=== PATIENT | male | born 1985 ===

== ENCOUNTER 2023-06-22 15:15 | Emergency (ER) | payer MEDICAID, SELFPAY ==
--- NOTE | ~2023-06-22 | XR_ITS ---
EXAMINATION: XR HAND, LEFT CLINICAL INFORMATION: 1st digit ?FB, pain, swelling COMPARISON: None available. TECHNIQUE: PA, lateral, and oblique views of the left hand. FINDINGS: There is soft tissue swelling of the proximal index finger. No air in the soft tissue. No radiopaque foreign body. No osseous abnormality. Bone and joint are normal. XR/XR hand LT min 3V IMPRESSION: There is soft tissue swelling of the proximal index finger. No radiopaque foreign body. No osseous abnormality.
[2023-06-22 15:28] VITALS: BP 145/93; PULSE 103; RESP 18; TEMP 37.3; O2SAT 98; BMI 34.7
--- NOTE | 2023-06-22 15:28 | ED.UPPEXIN ---
HPI - Extremity Injury (Upper) General Chief Complaint: Extremity Injury, Upper Stated Complaint: left finger swollen ?glass Time Seen by Provider: 06/22/23 16:26 Source: patient Mode of arrival: ambulatory Limitations: no limitations History of Present Illness HPI narrative: Patient is a 38-year-old male presenting to the emergency department with complaint of left index finger pain and swelling. He reports that he was handling glass last night and is unsure if he has a piece of glass stuck in his finger. He denies any discharge or drainage from the area. Denies any fevers. Reports pain with range of motion. Denies any numbness or tingling to finger. Unsure last tetanus vaccine. complaint: injury to: left and finger Onset (ago): hour(s) Other injuries: none Handedness: right Place: home Severity: moderate Relieving factors: rest Exacerbating factors: movement of extremity Context: other (handling glass) Associated symptoms: denies other symptoms Related Data Allergies Allergy/AdvReac Type Severity Reaction Status Date / Time Penicillins Allergy Facial Verified 06/22/23 15:28 Swelling Review of Systems Review of Systems: As per HPI Yes all other systems are reviewed and are negative Constitutional: Constitutional: Reports as per HPI [facility] Social History Social History Advance Directives: No Advance Directives Information Provided: No Physical Exam Vital Signs: Vital Signs: Last Vital Signs Temp 99.2 F 06/22/23 15:28 Pulse 103 H 06/22/23 15:28 Resp 18 06/22/23 15:28 BP 145/93 H 06/22/23 15:28 Pulse Ox 98 06/22/23 15:28 O2 Del Method Room Air 06/22/23 15:28 BMI result Body Mass Index 34.7 Vital signs have been reviewed and appear to be correct. Blood pressure elevated. Heart rate mildly elevated. Respiratory rate normal. Temperature normal. Oxygen saturation normal. Const: General: cooperative, healthy appearing and no acute distress Orientation/consciousness: oriented to person, oriented to place, oriented to time and patient oriented x3 Limitations: no limitations HEENT: Head: Yes normocephalic and Yes atraumatic Ears: external ears normal General nose exam: Normal external nose present Face and sinus: Yes face symmetric Mouth: oropharynx normal and moist mucous membranes Throat: Yes uvula midline Eyes: Pupils: Equal, round and reactive pupils present Neck: Neck: Yes normal visual inspection and Yes supple Resp: Effort & Inspection: normal respiratory effort and able to speak in complete sentences Auscultation: clear to auscultation bilaterally Cardio: Rate: regular rate Rhythm: regular rhythm Heart sounds: S1 normal heart sound present and S2 normal heart sound present GI: Palpation (GI): Soft to palpation and nontender Auscultation: normoactive bowel sounds : General: Yes no CVA tenderness Back/Spine/Pelvis: Back: no CVA tenderness Skin: General skin exam: elasticity normal and turgor normal Trauma: puncture (<1mm puncture wound to palmar aspect of left index finger in area of DIP) Neuro: General: oriented to person, oriented to place, oriented to time, patient oriented x3, moves all extremities, no focal motor deficits and CN's II-XI intact bilaterally Cranial nerves: Yes Equal, round and reactive pupils present Cognition (Neuro): normal cognition Extrem: General: Yes full ROM, Yes normal exam except as noted, Yes no pedal edema and Yes no calf tenderness Left upper extremity: hand Details: normal capillary refill, neuromotor exam normal, neurosensory exam normal, tendon exam normal, tenderness Location: of the 2nd digit Location: at the DIP joint and on the palmar aspect, normal ROM of fingers and swelling Location: of the 2nd digit Location: involving the entire digit (mild) Psych: Mental Status: mental status grossly normal Affect: normal affect Thought process: Normal thought process present Course Course Course Narrative: RME: 38yo M w/no sig PMHx c/o left index finger swelling, erythema, and pain since last night with suspected glass stuck in digit. Reports difficulty/inability to bend finger Left index finger with noted swelling and erythema. Small cut to the DIP. Decreased ROM X-rays ordered Full HPI, ROS and PE to be performed by primary ED provider. Medical Decision Making Medical Decision Making MDM Narrative: Patient is a 38-year-old male presenting to the emergency department with complaint of left index finger pain and swelling. On exam patient is awake, A+Ox3, VS WNL, afebrile, normal neurological exam without focal deficits, <1mm puncture wound noted to palmar surface of left index finger in area of the IP joint, mild swelling to entire left index finger, full range of motion, sensation intact, normal cap refill. Given reported symptoms and physical exam findings, initial differential includes foreign body, puncture wound, cellulitis. X-ray notable for no radio opaque foreign body. My interpretation is in agreement with the radiologist's interpretation. Will update tetanus at today's visit. 18:30 Patient noted to have eloped from exam room. Patient was not updated on results of x-ray prior to eloping. Patient did not receive Tdap prior to eloping. Differential Diagnosis Differential Diagnoses: The differential diagnosis associated with the presentation includes As per MDM Independent Interpretation I performed an independent interpretation of an: Plain X-Ray Interpretation: No radiopaque foreign body to index finger Radiology Impression Discussion of test interpretation with radiology: I have reviewed the radiologist's reading. External Record Review External record reviewed: Inpatient record, Office record and Outpatient record Prescription Management I considered prescription management with: Other (Tdap-pt eloped prior to administration) Discharge Plan Discharge Clinical Impression: Finger pain, left Patient Disposition: Elopement
== END 2023-06-22 21:44 | disposition left against medical advice (07) ==
PROVIDERS: Emergency Provider Emergency Medicine
DX: M79.645 Pain in left finger(s) (principal); M79.89 Other specified soft tissue disorders
CPT/HCPCS: 73130; 99283

== ENCOUNTER 2025-05-02 22:18 | Emergency (ER) | payer MEDICAID, SELFPAY ==
[2025-05-02 22:21] VITALS: BP 109/53; BP 110/75; PULSE 103; PULSE 114; RESP 20; O2SAT 89; O2SAT 96; BMI 25.5
[2025-05-02 22:28] VITALS: TEMP 36.6
--- NOTE | 2025-05-02 22:29 | PC.NURSE ---
1 bag of belongings placed in [place] shelf 2
[2025-05-03 00:17] VITALS: BP 93/51; PULSE 82; RESP 20; TEMP 36.4; O2SAT 97
--- NOTE | 2025-05-03 00:24 | ED_ITS ---
HPI - Overdose General Chief Complaint: Overdose Stated Complaint: over dose heroin Time Seen by Provider: 05/02/25 22:32 Source: patient Mode of arrival: EMS Limitations: no limitations History of Present Illness ED Provider: HPI Narrative: Patient's history of substance abuse will use cocaine was with friends had few drinks and use cocaine but became unresponsive likely had fentanyl when EMS reached came patient was unresponsive was given 10 mg of Narcan intranasally patient woke up and back to normal now patient denies use of opiates in the past no history of overdose in the past patient's started vomiting prior to arrival after Narcan Related Data Allergies Allergy/AdvReac Type Severity Reaction Status Date / Time Penicillins Allergy Facial Verified 05/02/25 22:23 Swelling Review of Systems 2 Review of Systems: Yes all other systems are reviewed and are negative [facility] Social History Social History Advance Directives: No Advance Directives Information Provided: No Physical Exam 2 Vital Signs: Vital Signs: Last Vital Signs Temp 97.6 F 05/03/25 00:17 Pulse 75 05/03/25 01:05 Resp 16 05/03/25 01:05 BP 105/73 05/03/25 01:05 Pulse Ox 97 05/03/25 01:05 O2 Del Method Room Air 05/03/25 01:05 BMI result Body Mass Index 25.5 Appearance: Alert. Oriented X3. No acute distress. Eyes: PERRLA, No Nystagmus ENT: Pharynx normal. Oral Mucosa moist Neck: Normal inspection. Neck supple. CVS: Normal heart rate and rhythm. Pulses normal. Respiratory: No respiratory distress. Equal air entry bilateral, no wheezing/rales/rhonchi Abdomen: Soft and nontender. Bowel sounds are present, no mass palpable, no CVA tenderness Skin: Skin warm and dry. Normal skin color. Normal skin turgor. Extremities: No lower extremity edema. No calf tenderness Neuro: Oriented X 3. No motor deficit. No sensory deficit.No cerebellar signs , cranial nerves II-XII intact Medications Administered Generic Name Dose Route Start Last Admin Trade Name Freq PRN Reason Stop Dose Admin Sodium Chloride 1,000 mls @ 999 mls/hr 05/03/25 00:50 05/03/25 00:59 Ns IV 05/03/25 01:50 999 mls/hr .Q1H1M ONE Administration Discontinued Medications Generic Name Dose Route Start Last Admin Trade Name Lenard PRN Reason Stop Dose Admin Ondansetron HCl 4 mg 05/02/25 23:04 05/02/25 23:07 Ondansetron Odt 4 Mg Tab.Stephan SORIA 05/02/25 23:05 4 mg ONCE ONE Administration Medical Decision Making Medical Decision Making [facility] Narrative: Patient clinically with opiate overdose responded to Narcan patient denies opiate use does not want to give the urine sample with stable vitals saturating 97% at room patient does not want any help go for detox Differential Diagnosis Differential Diagnoses: The differential diagnosis associated with the presentation includes Lab Data [facility] Lab Attestation statement: I reviewed the patient's lab results. 05/03/25 00:58 05/03/25 00:58 Labs: Lab Results 05/03/25 Range/Units 00:58 WBC 5.9 (4.8-10.8) X10*3/uL RBC 5.25 (4.60-5.80) X10*6/uL Hgb 14.3 (14.0-18.0) g/dl Hct 43.0 (42.0-52.0) % MCV 81.9 (80.0-98.0) fL MCH 27.2 (27.0-33.0) pg MCHC 33.3 (31.0-36.0) g/dl RDW 14.4 (11.0-16.0) % Plt Count 364 (160-400) X10*3/uL MPV 8.4 L (9.4-12.4) fL Immature Gran % (Auto) 0.9 H (0.0-0.4) % Neut % (Auto) 63.2 (45-73) % Lymph % (Auto) 15.5 L (20-40) % Duval % (Auto) 17.4 H (2-11) % Eos % (Auto) 2.7 (0-4) % Baso % (Auto) 0.3 (0-2) % Lymph # (Auto) 0.9 L (1.2-4.9) X10*3/uL Duval # (Auto) 1.0 (0.1-1.2) X10*3/uL Eos # (Auto) 0.2 (0.0-0.4) X10*3/uL Baso # (Auto) 0.0 (0.0-0.2) X10*3/uL Abs Immat Gran (auto) 0.05 H (0.00-0.03) X10*3/uL Absolute Neuts (auto) 3.7 (2.0-8.3) x10*3/uL Absolute Nucleated RBC 0.000 (0.0-0.012) X10*3/uL Nucleated RBC % (auto) 0.0 (0.0-0.2) /100WBC Sodium 144 (135-145) mmol/L Potassium 4.9 (3.3-5.1) mmol/L Chloride 107 (96-108) mmol/L Carbon Dioxide 27 (22-29) mmol/L Anion Gap 15 (12-20) BUN 15 (9-16) mg/dL Creatinine 1.10 (0.5-1.4) mg/dL Estim Creat Clear Calc 81.7 Estimated GFR > 60 Random Glucose 90 (60-115) mg/dL Calcium 9.0 (8.4-10.2) mg/dL Total Bilirubin 0.2 (0.0-1.0) mg/dL AST 34 (5-37) U/L ALT 41 H (0-40) U/L Alkaline Phosphatase 75 (39-117) U/L Troponin I High Sens 17.3 (<3.5-35.0) ng/L Total Protein 7.5 (6.5-8.0) g/dL Albumin 4.3 (3.5-5.0) g/dL Independent Interpretation I performed an independent interpretation of an: EKG Interpretation: Normal sinus rhythm with heart rate 81 beats per minute LVH no acute STT wave changes no acute ischemia Discharge Plan Discharge Clinical Impression: Opiate overdose Patient Disposition: Home, Self-Care Instructions: Opioid Use Disorder (ED) Additional Instructions: Opiate use disorder You were seen in our Emergency Department today for treatment of opiate use disorder. You may have been dosed with medication for opiate use disorder (MOUD) in the form of suboxone or methadone. You may experience feeling some withdrawal symptoms and this is normal. The? dose in the Emergency Department is a starting dose and meant to be titrated up once you follow up with a clinic. Please do not feel discouraged, it is a process. The nurse has reviewed with you where to follow up and what information to bring with you, to continue treatment. You also may have been given naloxone (narcan) to take home with you. This medication is used to potentially treat opiate overdose. If you decide you want to stop or cut down on how much you?re using, you can call or walk into our outpatient Addiction Treatment office: [facility] (M-F 9am-5p) [address] [place] [address], [address] [phone] You may have been provided with safer injection?items, please take time to take care of YOU and your health. Use new supplies whenever possible to lessen the chances of infections and other illnesses.? ?If you need more supplies, please go [facility],? [address] [place] [address] OR you can call or text to coordinate delivery of safer supplies. You were also provided a list of several treatment providers in the area.? If you experience any worsening symptoms you cannot control please return to the ED or call 911. Please follow up at your next appointment. Things to look out for are fevers, chest pain, shortness of breath, severe pain, dizziness, fainting or any other concerns. Print Language: Japanese
--- NOTE | 2025-05-03 00:50 | ECG_ITS ---
Test Reason : OVERDOSE Blood Pressure : */* mmHG Vent. Rate : 81 BPM Atrial Rate : 81 BPM P-R Int : 148 ms QRS Dur : 130 ms QT Int : 424 ms P-R-T Axes : 71 54 236 degrees QTcB Int : 492 ms Normal sinus rhythm Left ventricular hypertrophy with QRS widening and repolarization abnormality ( Sokolow-Cabrera , Tahir product , Romhilt-Yarbrough ) Abnormal ECG No previous ECGs available Referred By: Gordo Goodrich Electronically Signed By: ANI MONTAÑO
[2025-05-03 00:53] VITALS: BP 92/59; PULSE 80; RESP 16; O2SAT 96
[2025-05-03 01:02] LABS: Hematocrit 43.0 % (42.0-52.0); Hemoglobin 14.3 g/dl (14.0-18.0); Imm Gran Abs Auto 0.05 X10*3/uL (0.00-0.03); Imm Gran Pct Auto 0.9 % (0.0-0.4); Lymphocytes Absolute Auto 0.9 X10*3/uL (1.2-4.9); MANUAL DIFF FLAG NO; Mean Corpuscular HGB Conc 33.3 g/dl (31.0-36.0); Mean Corpuscular Hemoglobin 27.2 pg (27.0-33.0); Mean Corpuscular Volume 81.9 fL (80.0-98.0); NRBC Abs Auto 0.000 X10*3/uL (0.0-0.012); NRBC Pct Auto 0.0 /100WBC (0.0-0.2); Platelet Count 364 X10*3/uL (160-400); Red Blood Count 5.25 X10*6/uL (4.60-5.80); White Blood Count 5.9 X10*3/uL (4.8-10.8)
[2025-05-03 01:05] VITALS: BP 105/73; PULSE 75; RESP 16; O2SAT 97
[2025-05-03 01:16] LABS: Alanine Aminotransferase 41 U/L (0-40); Albumin Level 4.3 g/dL (3.5-5.0); Alkaline Phosphatase 75 U/L (39-117); Anion Gap 15 (12-20); Aspartate Amino Transferase 34 U/L (5-37); Blood Urea Nitrogen 15 mg/dL (9-16); Calcium 9.0 mg/dL (8.4-10.2); Carbon Dioxide 27 mmol/L (22-29); Chloride 107 mmol/L (96-108); Creatinine Clr Calc Pharmacy 81.7; Estimated Glomerular Filt Rate > 60; Potassium 4.9 mmol/L (3.3-5.1); Sodium 144 mmol/L (135-145); Total Protein 7.5 g/dL (6.5-8.0)
[2025-05-03 01:21] LABS: Troponin-I High Sensitivity 17.3 ng/L (<3.5-35.0)
[2025-05-03 02:06] VITALS: BP 102/41; PULSE 81; RESP 14; O2SAT 93
[2025-05-03 02:22] VITALS: BP 106/65; PULSE 81; RESP 20; O2SAT 97
[2025-05-03 05:04] LABS: Cannabinoid Screen Urine Not Detected (Not Detect)
[2025-05-03 05:34] VITALS: BP 123/68; PULSE 72; RESP 14; TEMP 36.6; O2SAT 100
--- NOTE | 2025-05-03 05:53 | PC.NURSE ---
states he feels ready to leave. alert and oriented. ambulates steadily. calm, polite. given shirt from collection bin and additional resources/numbers for detox/shelters.
== END 2025-05-03 06:12 | disposition home or self-care (01) ==
PROVIDERS: Emergency Provider Internal Medicine
DX: T40.1X1A Poisoning by heroin, accidental (unintentional), initial encounter (principal); R40.4 Transient alteration of awareness; R11.2 Nausea with vomiting, unspecified; F14.10 Cocaine abuse, uncomplicated; R94.31 Abnormal electrocardiogram [ECG] [EKG]; Z51.81 Encounter for therapeutic drug level monitoring; Z79.899 Other long term (current) drug therapy
CPT/HCPCS: 36415; 80053; 80307; 84484; 85025; 93005; 96360; 96361; 99284

== ENCOUNTER → 2025-05-03 00:50 | Outpatient (BNV) | payer MEDICAID, SELFPAY | PROVIDERS: Emergency Provider Internal Medicine; Visit Provider Internal Medicine | DX: I51.7 Cardiomegaly (principal) | CPT/HCPCS: 93010 ==

== ENCOUNTER 2025-06-03 21:12 | Emergency (ER) | payer MEDICAID, SELFPAY ==
[2025-06-03 21:32] VITALS: BP 117/76; BP 118/72; PULSE 112; PULSE 89; RESP 20; TEMP 36.5; O2SAT 95; O2SAT 99; BMI 29.0
--- NOTE | 2025-06-03 21:32 | ED.OVERDOSE ---
HPI - Overdose General Stated Complaint: OD/8 mg narcan given Time Seen by Provider: 06/03/25 21:28 Source: patient Mode of arrival: ambulatory Limitations: no limitations History of Present Illness ED Provider: Dr. Ernestina Colón HPI Narrative: Patient comes to the emergency room complaining of an overdose. According to the patient, he was using cocaine but seems to be laced with something. Patient denies suicide attempt or ideation, no HI, denies anxiety or depression. Patient states that he feels well. Patient is requesting to be discharged as soon as possible because he would lose his housing accommodation for tonight. Patient denies any injuries. Related Data Allergies Allergy/AdvReac Type Severity Reaction Status Date / Time Penicillins Allergy Facial Verified 06/03/25 21:34 Swelling Review of Systems Review of Systems: Constitutional : No Weight loss, No Fever, No Chills, No Night Sweats, No Fatigue, No Malaise ENT/Mouth : No Hearing loss, No Ear Pain, No Nasal Congestion, No Sinus Pain, No Hoarseness, No sore throat, No Rhinorrhea, No Swallowing Difficulty Eyes: No Eye Pain, No Swelling, No Redness, No Foreign Body, No Discharge, No Vision Changes Cardiovascular : No Chest Pain, No SOB, No Dyspnea on Exertion, No Orthopnea, No Edema, No Palpitations Respiratory : No Cough, No Sputum, No Wheezing, No Smoke Exposure, No Dyspnea Gastrointestinal : No Nausea, No Vomiting, No Diarrhea, No Constipation, No abdominal Pain, No Hematochezia, No Melena Genitourinary : no irregular bleeding, No Dysuria, No Urinary Frequency, No Hematuria, No Urinary Incontinence, No Urgency, No Flank Pain, No Urinary Flow Changes, No Hesitancy Musculoskeletal : No joint pain, No Myalgias, No Joint Swelling Skin : No Skin Lesions, No rash Neuro : No Weakness, No Numbness, No Paresthesias, No Loss of Consciousness, No Dizziness, No Headache Psych : No Anxiety/Panic, No Depression, No SI/HI/AH/VH, admits to polysubstance abuse an accidental overdose Heme/Lymph: No Bruising, No Bleeding,No Lymphadenopathy Endocrine : No Polyuria, No Polydipsia, No Temperature Intolerance PMF Past Medical History Medical History (Updated 06/03/25 @ 21:34 by Ernestina Colón MD) Overdose Polysubstance abuse Physical Exam Exam: Exam: Appearance: Alert. Oriented X3. No acute distress. Eyes: Pupils equal, round and reactive to light. ENT: Pharynx normal. Neck: Normal inspection. Neck supple. No lymph nodes noted. No crepitus CVS: Normal heart rate and rhythm. Pulses normal. Normal S1 and S2 Respiratory: No respiratory distress. Breath sounds normal. No Wheezing. No rales Abdomen: Soft and nontender. No rigidity. No distention. Skin: Skin warm and dry. Normal skin color. Normal skin turgor. Extremities: No lower extremity edema. No Lacerations. No Rash Neuro: Oriented X 3. No motor deficit. No sensory deficit. Moving all extremities. No slurred speech. CN 2 through 12 grossly intact Psych: calm, cooperative, normal affect Medical Decision Making Medical Decision Making MDM Narrative: Patient is awake, alert and oriented x3, coherent. Patient is on the oxygen monitor oxygen saturation 97% on room air. Patient states that he needs to be discharged as soon as possible or he will lose his housing arrangement for [facility]. Patient received 8 mg of Narcan. I discussed with the patient that it is possible that the Narcan affect may were done and he might become unresponsive and stopped breathing. Patient states that he knows that he is doing and is requesting to be discharged, declined any further assistance. Patient was given home Narcan declined teodora elena Differential Diagnosis Differential Diagnoses: The differential diagnosis associated with the presentation includes (Polysubstance abuse, accidental overdose) Discharge Plan Discharge Clinical Impression: Overdose Patient Disposition: Home, Self-Care Instructions: Adult Overdose (ED) Additional Instructions: Overdose You were seen in our Emergency Department for an overdose today. You received narcan in order to reverse the effects of overdose. Narcan only lasts about 45 min to 1 hour in the system. You may have been given narcan to take home with you today, please keep it near you if you are going to use again, so others can use it if needed.? The number one risk for fatal overdose is using alone? [facility] is a / hotline where you can be on the phone with someone while you use, and they can call for help if they suspect an overdose: [phone] Things to look out for when you leave include severe vomiting or diarrhea, headaches, muscle cramps, fever, coughing, chest pain, or if you feel so short of breath you cannot walk to the bathroom. Please seek care and return any time for worsening symptoms.? You may have been provided with safer injection?items, please take time to take care of YOU and your health. Use new supplies whenever possible to lessen the chances of infections and other illnesses.? If you need more supplies, please go [facility],? [address] [place] [address] OR you can call or text to coordinate delivery of safer supplies. If you decide you want to stop or cut down on how much you?re using, please call the numbers on the list provided to you or you can come to our outpatient Addiction Treatment office [facility] (M-F 9am-5p) [address] [place] [address], [facility] [address] [place], [place]. [phone] Print Language: Micronesian
[2025-06-03] MEDS: Naloxone HCl Nasal TAKE HOME 4 MG SPRAY 8 MG NOSTRILALT (21:36)
== END 2025-06-03 21:40 | disposition home or self-care (01) ==
LOC: HO.ED 21:37
PROVIDERS: Emergency Provider Emergency Medicine
DX: T65.91XA Toxic effect of unspecified substance, accidental (unintentional), initial encounter (principal); Y92.9 Unspecified place or not applicable
CPT/HCPCS: 99281; 99283

== ENCOUNTER 2025-10-18 09:23 | Inpatient (IN) | payer MEDICAID, SELFPAY ==
--- OUTSIDE RECORDS SUMMARY | 2024-04-30 10:00 | XMS_ITS ---
Author Organization [facility] Address [address] [place] [address] Care Team Providers Care Orthopedic Coder Name Role Phone Kim Harrison Primary Care Provider REASON FOR VISIT Phone: f/u Medications Medication SIG (Take, Route, Frequency, Duration) Notes Start Date End Date Status OLANZAPINE 5 mg 1 tab(s) orally once a day Active ACETAMINOPHEN 325 mg 2 tab(s) orally every 6 hours as needed Active IBUPROFEN 600 mg 1 tab(s) orally tid PRN Rt arm pain Active HYDROXYZINE hydrochloride 25 mg 1-2 tab(s) orally BID PRN Active CALCITRATE WITH D 315 mg-6.25 mcg 1 tab(s) orally daily for 90 days Vit D defic Active MULTIVITAMIN Multiple Vitamins 1 cap(s) orally once a day for 28 day(s) 08/07/2021 Unknown METFORMIN 500 mg 1 tab(s) orally 2 times a day Active FERROUS SULFATE 324 mg 1 tab(s) orally once a day pls deliver to address 04/05/2023 Active MELATONIN 5 mg 1 -2tab(s) orally once a day (at bedtime) as needed Active THIAMINE 100 mg 1 tab(s) orally once a day Active FOLIC ACID 1 mg 1 tab(s) orally once a day for 30 day(s) AUD Unknown NICODERM C-Q CLEAR 21 mg/24 hr 1 PATCH transdermally once a day Not-Taking BUPROPION SR 100 mg 1 tab(s) orally 2 times a day Not-Taking DIPHENHYDRAMINE 25 mg 1 cap(s) orally qhs Unknown NALTREXONE 50 mg 1 tab(s) orally once a day PRN Not-Taking ESCITALOPRAM 20 mg 1 tab(s) orally once a day for 30 days Active TRAZODONE 150 mg 1 tab(s) orally qhs PRN for 15 days No further RFs w/o 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 ALUMINUM HYDROXIDE/MAGNESIUM HYDROXIDE/SIMETHICONE 200 mg-200 mg-20 mg/5 mL 30 mL orally 4 times a day (after meals and at bedtime) as needed Not-Taking Encounters Encounter Location Date Provider Diagnosis [facility] [address] [place] [address] [facility] [id number] 04/30/2024 Daleradha Harrison Persons encountering health services in other specified circumstances Z76.89 and Person consulting for explanation of examination or test findings Z71.2 Assessments Encounter Date Diagnosis (ICD Code) Assessment Notes Treatment Notes Treatment Clinical Notes Section Notes 04/30/2024 Persons encountering health services in other specified circumstances (ICD-10 - Z76.89) Reviewed results of recent diagnostic testing with client. Future plan of action discussed with from results of diagnostic testing. 04/30/2024 Person consulting for explanation of examination or test findings (ICD-10 - Z71.2) 04/30/2024 Other Time spent in visit: minutes Plan Of Treatment Treatment Notes Assessment Notes Persons encountering health services in other specified circumstances Reviewed results of recent diagnostic testing with client. Future plan of action discussed with from results of diagnostic testing. Other Time spent in visit: minutes Next Appt Details Provider Name:Kim torrez, 11/01/2025 11:30:00 AM, [address] [place] [address], [phone], Progress Notes * Todd VAZQUEZDOB: [birth year] (40 yo M)Acc No.[id number]:04/30/2024 Progress Notes Patient: Ratna LUCIANOGladis Maxwell Provider: DAVID Pina :1985 A ge:39 Y S ex:Male Date:04/30/2024 Address:[address] [place] [address]( Verify address), [address] [address] (verify address), [place] [phone] Subjective: * Chief Complaints: * 1 . Phone: f/u. * HPI: G eneral: The patient has consented to a telephone encounter to reduce the risk of jenae COVID-19 in an office visit at this time. Limitations of this method of delivery of health services were discussed . The patient was made aware that privacy and confidentiality measures are in place to protect privacy. Location of provider: [facility] Location of patient: domicile Advocate present: none. 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 [facility] -substance use: tries to clean, uses once a month -MJ - once in a while. Gets from [employer] -[place] - 3 - 4 beers/day 3x a week -Cigarettes - 7 cigarettes day; started since 13 y/o; not ready to stop yet. * Medical History: * Medications: T aking CALCITRATE WITH D 315 mg-6.25 mcg tablet 1 tab(s) orally daily , Notes to Pharmacist: Vit D defic, Taking ACETAMINOPHEN 325 mg tablet 2 tab(s) orally every 6 hours as needed , Taking OLANZAPINE 5 mg tablet 1 tab(s) orally once a day , Taking HYDROXYZINE hydrochloride 25 mg tablet 1-2 tab(s) orally BID PRN , Taking IBUPROFEN 600 mg tablet 1 tab(s) orally tid PRN , Notes to Pharmacist: Rt arm pain, Taking TRAZODONE 150 mg tablet 1 tab(s) orally qhs PRN , Notes to Pharmacist: No further RFs w/o appt with WHITEPRINTING MACHINE OPERATOR, Taking ESCITALOPRAM 20 mg tablet 1 tab(s) orally once a day , Taking FERROUS SULFATE 324 mg delayed release tablet 1 tab(s) orally once a day , Notes to Pharmacist: pls deliver to address, Taking METFORMIN 500 mg tablet 1 tab(s) orally 2 times a day , Taking THIAMINE 100 mg tablet 1 tab(s) orally once a day , Taking MELATONIN 5 mg tablet 1 -2tab(s) orally once a day (at bedtime) as needed , Not-Taking/PRN ALUMINUM HYDROXIDE/MAGNESIUM HYDROXIDE/SIMETHICONE 200 mg-200 mg- 20 mg/5 mL suspension 30 mL orally 4 times a day (after meals and at bedtime) as needed , Not-Taking/PRN NICODERM C-Q CLEAR 21 mg/24 hr film, extended release 1 PATCH transdermally once a day , Not-Taking/PRN BUPROPION SR 100 mg tablet 1 tab(s) orally 2 times a day , Not-Taking/PRN NALTREXONE 50 mg tablet 1 tab(s) orally once a day PRN , Unknown DIPHENHYDRAMINE 25 mg capsule 1 cap(s) orally qhs , Unknown FOLIC ACID 1 mg tablet 1 tab(s) orally once a day , Notes to Pharmacist: AUD, Unknown MULTIVITAMIN Multiple Vitamins capsule 1 cap(s) orally once a day Objective: * Vitals: * Examination: G eneral Examination: U nable to perform PE due to constraints of telephone encounter/observational only. Engaged in OV and answers questions appropriately. No noted respiratory distress. No concerning verbal communication indicating BH distress. Assessment: * Assessment: 1. P erson consulting for explanation of examination or test findings - Z71.2 (Primary) ? 2 . P ersons encountering health services in other specified circumstances - Z76.89? Plan: * Treatment: 2. O thers Notes:Time spent in visit: minutes * Images: Billing Information: * Visit Code: T1015 CLINIC VST/ENCOUNTER ALL-INCLUSIVE. [address]120 HPI: 1PF;1ROS;PE: 2-4BA/SYS;MDM:Low; Prescription/OTC;most infections or >50%/15min spent counseling. 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 [facility] -substance use: tries to clean, uses once a month -MJ - once in a while. Gets from [employer] -[place] - 3 - 4 beers/day 3x a week -Cigarettes - 7 cigarettes day; started since 13 y/o; not ready to stop yet Examination Category Sub-Category Detail Notes Category Not es General Examination Unable t o perform PE due to constraints of telephone encounter/observational only. Engaged in OV and answers questions appropriately. No noted respiratory distress. No concerning verbal communication indicating BH distress.
--- OUTSIDE RECORDS SUMMARY | 2025-07-03 16:00 | XMS_ITS ---
Author Organization [facility] Address [address] [place] [address] Care Team Providers Care Garden Worker Name Role Phone Kim Harrison Primary Care Provider Migration, Provider Unavailable Unavailable Allergies Allergen (clinical drug ingredient) Drug/Non Drug Allergy documented on EMR Reaction Allergy Type Onset Date Status Penicillin mother told him he was allergoic to it. Drug Allergy Active REAS[facility] VISIT [facility] Conversion Encounter Medications Medication SIG (Take, Route, Frequency, Duration) Notes Start Date End Date Status Thiamine HCl 100 MG 1 tab(s) orally once a day Active metFORMIN HCl 500 MG 1 tab(s) orally 2 times a day Active Melatonin 5 MG 1 -2tab(s) orally once a day (at bedtime) as needed Active Ferrous Sulfate 324 MG 1 TAB(S) ORALLY ONCE A DAY pls deliver to address *Please review and pick correct strength-formula tion from [employer] options. If intended option is not shown, discontinue and re-order from Quick Search* 04/05/2023 Active Multi Vitamin MULTIPLE VITAMINS 1 CAP(S) ORALLY ONCE A DAY for 28 DAY(S) *Please review and pick correct strength-formula tion from [employer] options. If intended option is not shown, discontinue and re-order from Quick Search* 08/07/2021 Unknown BUPROPION SR 100 MG 1 TAB(S) ORALLY 2 TIMES A DAY *Please review for potential replacement for e-prescription and drug interaction check* Not-Taking Nicoderm CQ 21 MG/24HR 1 PATCH transdermally once a day Not-Taking diphenhydrAMINE HCl 25 MG 1 cap(s) orally qhs Unknown Naltrexone HCl 50 MG 1 tab(s) orally once a day PRN Not-Taking Folic Acid 1 MG 1 tab(s) orally once a day for 30 day(s) AUD Unknown traZODone HCl 150 MG 1 tab(s) orally qhs PRN for 15 days No further RFs w/o appt with SOFTWARE TECHNICIAN Active Ibuprofen 600 MG 1 tab(s) orally tid PRN Rt arm pain Active ALUMINUM HYDROXIDE/MAGNESIUM HYDROXIDE/SIMETHICONE 200 MG-200 MG-20 MG/5 ML 30 ML ORALLY 4 TIMES A DAY (AFTER MEALS AND AT BEDTIME) NEEDED *Please review for potential replacement for e-prescription and drug interaction check* Not-Taking Escitalopram Oxalate 20 MG 1 tab(s) orally once a day for 30 days Active hydrOXYzine HCl 25 MG 1-2 tab(s) orally BID PRN Active Acetaminophen 325 MG 2 tab(s) orally every 6 hours as needed Active Calcitrate Plus D 315 MG-6.25 MCG 1 TAB(S) ORALLY DAILY for 90 DAYS Vit D defic *Please review and pick correct strength-formula tion from [facility] options. If intended option is not shown, discontinue and re-order from Quick Search* Active OLANZapine 5 MG 1 tab(s) orally once a day Active Encounters Encounter Location Date Provider Diagnosis [address] [address] 07/03/2025 Provider Migration Plan Of Treatment Next Appt Details Provider Name:Kim Lipscomb lore, 11/01/2025 11:30:00 AM, [address] [place] [address], [phone], Progress Notes * Todd VAZQUEZDOB: [birth year] (40 yo M)Acc No.[id number]:07/03/2025 Patient: Ratna Todd GRUBBS Provider: :1985 A ge:40 Y S ex:Male Date:07/03/2025 Address:[address] [place] [address]( Verify address), [address] (verify address), [id number] Pcp:Kim Harrison Subjective: * Chief Complaints: * 1 . Multum To Medispan Conversion Encounter. * Medical History: * Medications: T aking Calcitrate Plus D 315 MG-6.25 MCG TABLET 1 TAB(S) ORALLY DAILY , Notes to Pharmacist: Vit D defic *Please review and pick correct strength-formulation from [employer] options. If intended option is not shown, discontinue and re-order from Quick Search*, Taking Acetaminophen 325 MG Tablet 2 tab(s) orally every 6 hours as needed , Taking OLANZapine 5 MG Tablet 1 tab(s) orally once a day , Taking hydrOXYzine HCl 25 MG Tablet 1-2 tab(s) orally BID PRN , Taking Ibuprofen 600 MG Tablet 1 tab(s) orally tid PRN , Notes to Pharmacist: Rt arm pain, Taking traZODone HCl 150 MG Tablet 1 tab(s) orally qhs PRN , Notes to Pharmacist: No further RFs w/o appt with SOFTWARE TECHNICIAN, Taking Escitalopram Oxalate 20 MG Tablet 1 tab(s) orally once a day , Taking Ferrous Sulfate 324 MG DELAYED RELEASE TABLET 1 TAB(S) ORALLY ONCE A DAY , Notes to Pharmacist: pls deliver to address *Please review and pick correct strength-formulation from [employer] options. If intended option is not shown, discontinue and re-order from Quick Search*, Taking metFORMIN HCl 500 MG Tablet 1 tab(s) orally 2 times a day , Taking Thiamine HCl 100 MG Tablet 1 tab(s) orally once a day , Taking Melatonin 5 MG Tablet 1 -2tab(s) orally once a day (at bedtime) as needed , Not-Taking/PRN ALUMINUM HYDROXIDE/MAGNESIUM HYDROXIDE/SIMETHICONE 200 MG-200 MG-20 MG/5 ML SUSPENSION 30 ML ORALLY 4 TIMES A DAY (AFTER MEALS AND AT BEDTIME) NEEDED , Notes to Pharmacist: *Please review for potential replacement for e-prescription and drug interaction check*, Not-Taking/PRN Nicoderm CQ 21 MG/24HR Patch 24 Hour 1 PATCH transdermally once a day , Not-Taking/PRN BUPROPION SR 100 MG TABLET 1 TAB(S) ORALLY 2 TIMES A DAY , Notes to Pharmacist: *Please review for potential replacement for e-prescription and drug interaction check*, Not- Taking/PRN Naltrexone HCl 50 MG Tablet 1 tab(s) orally once a day PRN , Unknown diphenhydrAMINE HCl 25 MG Capsule 1 cap(s) orally qhs , Unknown Folic Acid 1 MG Tablet 1 tab(s) orally once a day , Notes to Pharmacist: AUD, Unknown Multi Vitamin MULTIPLE VITAMINS CAPSULE 1 CAP(S) ORALLY ONCE A DAY , Notes to Pharmacist: *Please review and pick correct strength-formulation from Medispan options. If intended option is not shown, discontinue and re-order from Quick Search* * Allergies: P enicillin: mother told him he was allergoic to it.. Objective: * Vitals: Assessment: Plan: * Treatment: * Images: Billing Information: * Visit Code: * Procedure Codes: * Electronic signature of Prov ider Migration on 10/18/2025 at 12:31 PM EST Sign off status: Pending * Provider: Date: 0 07/03/2025 Generated for Adelaida rawls/Judith/Katia on: 12:31 PM EST
--- OUTSIDE RECORDS SUMMARY | 2025-08-11 06:00 | XMS_ITS ---
Author Organization [facility] Address [address] [place] [address] Care Team Providers Care Micro Photographer Name Role Phone Kim Harrison Primary Care Provider [phone] Allergies Allergen (clinical drug ingredient) Drug/Non Drug Allergy documented on EMR Reaction Allergy Type Onset Date Status Penicillin mother told him he was allergoic to it. Drug Allergy Active REASON FOR VISIT Office; CPE Medications Medication SIG (Take, Route, Frequency, Duration) Notes Start Date End Date Status metFORMIN HCl 500 MG 1 tab(s) orally 2 times a day Active Ferrous Sulfate 324 MG 1 TAB(S) ORALLY ONCE A DAY pls deliver to address *Please review and pick correct strength-formula tion from [employer] options. If intended option is not shown, discontinue and re-order from Quick Search* 04/05/2023 Active Multi Vitamin MULTIPLE VITAMINS 1 CAP(S) ORALLY ONCE A DAY for 28 DAY(S) *Please review and pick correct strength-formula tion from [employer]ContactCard options. If intended option is not shown, discontinue and re-order from Quick Search* 08/07/2021 Unknown Melatonin 5 MG 1 -2tab(s) orally once a day (at bedtime) as needed Active Thiamine HCl 100 MG 1 tab(s) orally once a day Active Folic Acid 1 MG 1 tab(s) orally once a day for 30 day(s) AUD Unknown diphenhydrAMINE HCl 25 MG 1 cap(s) orally qhs Unknown Naltrexone HCl 50 MG 1 tab(s) orally once a day PRN Not-Taking BUPROPION SR 100 MG 1 TAB(S) ORALLY 2 TIMES A DAY *Please review for potential replacement for e-prescription and drug interaction check* Not-Taking Nicoderm CQ 21 MG/24HR 1 PATCH transdermally once a day Not-Taking Ibuprofen 600 MG 1 tab(s) orally tid PRN Rt arm pain Active hydrOXYzine HCl 25 MG 1-2 tab(s) orally BID PRN Active ALUMINUM HYDROXIDE/MAGNESIUM HYDROXIDE/SIMETHICONE 200 MG-200 MG-20 MG/5 ML 30 ML ORALLY 4 TIMES A DAY (AFTER MEALS AND AT BEDTIME) NEEDED *Please review for potential replacement for e-prescription and drug interaction check* Not-Taking Escitalopram Oxalate 20 MG 1 tab(s) orally once a day for 30 days Active traZODone HCl 150 MG 1 tab(s) orally qhs PRN for 15 days No further RFs w/o appt with CALENDER LET OFF OPERATOR Active Acetaminophen 325 MG 2 tab(s) orally every 6 hours as needed Active Calcitrate Plus D 315 MG-6.25 MCG 1 TAB(S) ORALLY DAILY for 90 DAYS Vit D defic *Please review and pick correct strength-formula tion from [employer] options. If intended option is not shown, discontinue and re-order from Quick Search* Active OLANZapine 5 MG 1 tab(s) orally once a day Active Encounters Encounter Location Date Provider Diagnosis [address] [address] 08/11/2025 Kim Harrison Encounter for screening for COVID-19 Z11.52 Assessments Encounter Date Diagnosis (ICD Code) Assessment Notes Treatment Notes Treatment Clinical Notes Section Notes 08/11/2025 Encounter for screening for COVID-19 (ICD-10 - Z11.52) Covid screening is negative. Discussed in detail with patient how to practice social distancing by avoiding public spaces and crowds now, wearing a mask in public to keep nose and mouth covered, and washing hands frequently especially before eating and after using the bathroom. Return to clinic if you develop any symtpoms of concern to be rescreened or go to the emergency room if you are having concerning symptoms for COVID-19. 08/11/2025 Other Plan Of Treatment Treatment Notes Assessment Notes Encounter for screening for COVID-19 Cov id screening is negative. Discussed in detail with patient how to practice social distancing by avoiding public spaces and crowds now, wearing a mask in public to keep nose and mouth covered, and washing hands frequently especially before eating and after using the bathroom. Return to clinic if you develop any symtpoms of concern to be rescreened or go to the emergency room if you are having concerning symptoms for COVID-19. Next Appt Details Provider Name:Kim torrez, 11/01/2025 11:30:00 AM, [address] [place] [address], [phone], Progress Notes * Todd VAZQUEZDOB: 3 (40 yo M)Acc No.[id number]:08/11/2025 Progress Notes Patient: Celeste SHERan J Provider: DAVID Pina :1985 A ge:40 Y S ex:Male Date:08/11/2025 Address:[address] [place] [address]( Verify address), .[place] [address] (verify address), [place], [id number] Subjective: * Chief Complaints: * 1 . Office; CPE. * HPI: G eneral: Symptom Screen: - Fever in the last 1 week? Patient denies - New or worsening cough in the last 1 week? Patient denies. - Contact will known COVID exposure in last 5 days? Patient denies -new rash within last 3 weeks? Patient denies - Have you received the COVID-19 vaccine? - Have you received COVID-19 booster? - Have you been tested positive for COVID -19 in the last 7 days? If so where and why? RN/MA:. * ROS: N o acute C/P no acute SOB, No problem with urine, No heartburn or abdominal pain. Endorses being able to climb one fight of stairs without stopping due to SOB, Mood: stable, appetite: good, sleeping well. Denies new skin rashes. * Medical History: * Medications: T aking [...] Pharmacist: No further RFs w/o appt with CALENDER LET OFF OPERATOR, Taking Escitalopram Oxalate 20 MG Tablet 1 tab(s) orally once a day , Taking Ferrous Sulfate 324 MG DELAYED RELEASE TABLET 1 TAB(S) ORALLY ONCE A DAY , Notes to Pharmacist: pls deliver to address *Please review and pick correct strength-formulation from myContactCard options. If intended option is not shown, [...] *Please review and pick correct strength-formulation from [employer]ContactCard options. If intended option is not shown, discontinue and re-order from Quick Search* * Allergies: P enicillin: mother told him he was allergoic to it.. Objective: * Vitals: Assessment: * Assessment: 1. E ncounter for screening for COVID-19 - Z11.52 (Primary) Plan: * Treatment: * Images: Billing Information: * Visit Code: * Procedure Codes: Care Plan Details* * Electronic signature of Marty Harrison on 10/18/2025 at 12:31 PM EST Sign off status: Pending * Provider: DAVID Pina Date: 1 Generated for Adelaida rawls/Judith/Katia on: 12:31 PM EST
--- OUTSIDE RECORDS SUMMARY | 2025-09-13 05:30 | XMS_ITS ---
Author Organization [facility] Address [address] [place] [address] Care Team Providers Care Monitoring Tech Name Role Phone Kim Harrison Primary Care Provider Allergies Allergen (clinical drug ingredient) Drug/Non Drug Allergy documented on EMR Reaction Allergy Type Onset Date Status Penicillin mother told him he was allergoic to it. Drug Allergy Active REASON FOR VISIT Office: CPE Encounters Encounter Location Date Provider Diagnosis [facility] [address] [place] [address] 09/13/2025 Kim Harrison Encounter for screening for COVID-19 Z11.52 Assessments Encounter Date Diagnosis (ICD Code) Assessment Notes Treatment Notes Treatment Clinical Notes Section Notes 09/13/2025 Encounter for screening for COVID-19 (ICD-10 - [...] you are having concerning symptoms for COVID-19. 09/13/2025 Other Plan Of Treatment Treatment Notes Assessment [...] symptoms for COVID-19. Next Appt Details Provider Name:Martycathy torrez, 11/01/2025 11:30:00 AM, [address] [place] [address], [place], [address], Progress Notes * Todd BLACKWOODDOB: 3 (40 yo M)Acc No.[id number]:09/13/2025 Progress Notes Patient: Todd SHER Provider: DAVID Pina :1985 A ge:40 Y S ex:Male Date:09/13/2025 Address:[address] [place] [address]( Verify address), [place] [address] (verify address), [place], [id number] Subjective: * Chief Complaints: * 1 . Office: CPE. * HPI: G eneral: Symptom Screen: [...] new skin rashes. * Medical History: * Allergies: P enicillin: mother told him he was allergoic to it.. Objective: * Vitals: Assessment: * Assessment: 1. E ncounter for screening for COVID-19 - Z11.52 (Primary) Plan: * Treatment: * Images: Billing Information: * Visit Code: * Procedure Codes: Care Plan Details* * Electronic signature of Martyluana morgan Alcondanieladacia on 10/18/2025 at 12:31 PM EST Sign off status: Pending * Provider: DAVID Pina Date: 11/13/2024 Generated for Adelaida rawls/Judith/Katia on: 12:31 PM EST
--- OUTSIDE RECORDS SUMMARY | 2025-10-07 06:30 | XMS_ITS ---
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 If intended option is not shown, discontinue and re-order from Quick Search* 04/05/2023 Active metFORMIN HCl 500 MG 1 tab(s) orally 2 times a day Active Folic Acid 1 MG 1 tab(s) orally once a day for 30 day(s) AUD Unknown Multi Vitamin MULTIPLE VITAMINS 1 CAP(S) ORALLY ONCE A DAY for 28 DAY(S) *Please review and pick correct strength-formula tion from Yunaitan options. If intended option is not shown, discontinue and re-order from Quick Search* 08/07/2021 Unknown Thiamine HCl 100 MG 1 tab(s) orally once a day Active ALUMINUM HYDROXIDE/MAGNESIUM HYDROXIDE/SIMETHICONE 200 MG-200 MG-20 MG/5 ML 30 ML ORALLY 4 TIMES A DAY (AFTER MEALS AND AT BEDTIME) NEEDED *Please review for potential replacement for e-prescription and drug interaction check* Not-Taking Naltrexone HCl 50 MG 1 tab(s) orally once a day PRN Not-Taking diphenhydrAMINE HCl 25 MG 1 cap(s) orally qhs Unknown Nicoderm CQ 21 MG/24HR 1 PATCH transdermally once a day Not-Taking BUPROPION SR 100 MG 1 TAB(S) ORALLY 2 TIMES A DAY *Please review for potential replacement for e-prescription and drug interaction check* Not-Taking hydrOXYzine HCl 25 MG 1-2 tab(s) orally BID PRN Active Ibuprofen 600 MG 1 tab(s) orally tid PRN Rt arm pain Active OLANZapine 5 MG 1 tab(s) orally once a day Active traZODone HCl 150 MG 1 tab(s) orally qhs PRN for 15 days No further RFs w/o appt with [employer] Active Escitalopram Oxalate 20 MG 1 tab(s) orally once a day for 30 days Active Melatonin 5 MG 1 -2tab(s) orally once a day (at bedtime) as needed Active Calcitrate Plus D 315 MG-6.25 MCG 1 TAB(S) ORALLY DAILY for 90 DAYS Vit D defic *Please review and pick correct strength-formula tion from [employer] options. If intended option is not shown, discontinue and re-order from Quick Search* Active Acetaminophen 325 MG 2 tab(s) orally every 6 hours as needed Active Encounters Encounter Location Date Provider Diagnosis [place] [id number] 10/07/2025 Kim Harrison Plan Of Treatment Next Appt Details Provider Name:Kim torrez, 11/01/2025 11:30:00 AM, [address] [place] [address], [phone], Progress Notes * Todd VAZQUEZDOB: [birth year] (40 yo M)Acc No.[id number]:10/07/2025 Progress Notes Patient: Ratna BARNESTodd IBARRA Provider: DAVID Pina :1985 A ge:40 Y S ex:Male Date:10/07/2025 Address:[address] [place] [address]( Verify address), [address] (verify address), [id number] Subjective: * Chief Complaints: * 1 . Office: CPE. 2. Preplan- Did he go to sleep medicine and [facility]. * HPI: G eneral: - [employer]ENT: 38 y/o male with history of active opioid and alcohol use, PTSD and depression presents for lab f/u -Reports pain on left leg right arm from arthritis.Takes Tylenol x 650 mg BID: Ibuprofen 600 mg BID which adequately help -Sleeping problem; snores, insomnia; app[place] [facility] [place] [facility] [place]27[place] appt -Reports daytime fatigue and easily dozes off -Social: lives by himself in an apartment -exercise?walks at least an hour 4x/week - provider? MHA -substance use: tries to clean, uses once a month -MJ - once in a while. Gets from [employer] -ETOH - 3 - 4 beers/day 3x a week -Cigarettes - 7 cigarettes day; started since 13 y/o; not ready to stop yet. * Medical History: * Medications: T aking Calcitrate Plus D 315 MG-6.25 MCG TABLET 1 TAB(S) ORALLY DAILY , Notes to Pharmacist: Vit D defic *Please review and pick correct strength-formulation from [employer] options. If intended option is not shown, [...] Pharmacist: No further RFs w/o appt with [employer], Taking Escitalopram Oxalate 20 MG Tablet 1 tab(s) orally once a day , Taking Ferrous Sulfate 324 MG DELAYED RELEASE TABLET 1 TAB(S) ORALLY ONCE A DAY , Notes to Pharmacist: pls deliver to address *Please review and pick correct strength-formulation from [employer] options. If intended option is not shown, [...] *Please review and pick correct strength-formulation from Yunaitan options. If intended option is not shown, discontinue and re-order from Quick Search* Objective: * Vitals: Assessment: Plan: * Treatment: * Images: Billing Information: * Visit Code: * Procedure Codes: Care Plan Details* * Electronic signature of Marty Harrison on 10/18/2025 at 12:31 PM EST Sign off status: Pending * Provider: RAQUEL PinaC Date: 12/08/2024 Generated for Adelaida rawls/Judith/Katia on: 12:31 PM EST History and Physical Notes * HPI (History of Present Illness) Category Sub-Category Detail Notes Category Not es General - [employer]ENT: 38 y/o male with history of active opioid and alcohol use, PTSD and depression presents for lab f/u -Reports pain on left leg right arm from arthritis.Takes Tylenol x 650 mg BID: Ibuprofen 600 mg BID which adequately help -Sleeping problem; snores, insomnia; app[place] [facility] [place] [facility] [place]27[place] appt -Reports daytime fatigue and easily dozes off -Social: lives by himself in an apartment -exercise?walks at least an hour 4x/week - provider? MHA -substance use: tries to clean, uses once a month -MJ - once in a while. Gets from [employer] -ETOH - 3 - 4 beers/day 3x a week -Cigarettes - 7 cigarettes day; started since 13 y/o; not ready to stop yet
[2025-10-18] VITALS (9 sets, daily range): BP systolic 109–136; BP diastolic 71–96; PULSE 96–114; RESP 16–24; TEMP 36.1–36.7; O2SAT 95–100; BMI 25.1; BMI 27.5
--- NOTE | ~2025-10-18 | XR_ITS ---
EXAMINATION: XR CHEST CLINICAL INFORMATION: SOB COMPARISON: None available. TECHNIQUE: 2 views of the chest were obtained. FINDINGS: The lung volumes are low. Pulmonary venous redistribution and increased central interstitial markings. No consolidation. No significant pleural effusion. No pneumothorax. The cardiac silhouette is enlarged. Bony structures are unremarkable. XR/XR chest 2V IMPRESSION: Enlarged cardiac silhouette, pulmonary venous redistribution and increased central interstitial markings. Findings are suggestive of mild CHF/pulmonary edema. Electronically signed by: Kim Conn MD 10/18/2025 10:27 AM [facility]
--- NOTE | 2025-10-18 10:13 | ED_ITS ---
HPI - General Adult General Chief complaint: Upper Respiratory Symptoms Stated complaint: cant breathe for a couple of days Time Seen by Provider: 10/18/25 10:56 Source: patient Mode of arrival: ambulatory Limitations: no limitations History of Present Illness ED Provider: Manasa Hanks PA-C HPI narrative: Todd presents with approximately three days of shortness of breath (SOB) and intermittent chest pain. SOB is worse with exertion and occurs both when lying flat and sitting upright. He also reports a cough and a generalized ?weird? body sensation with the ability to press into the skin of his legs and back, suggestive to him of swelling. He denies fever. He previously went to a community ED for similar symptoms but left prior to evaluation due to long wait times; laboratory work and an EKG were completed there (details below). He has no history of reactive airway disease, myocardial infarction, or hypertension. He missed a primary care appointment earlier this month while moving but is scheduled to see his PCP next month. Review of Systems: * Constitutional: Denies fever. * Cardiovascular: Positive for chest pain and exertional SOB; denies known hypertension or prior IL. * Respiratory: Positive for SOB and cough; SOB present both supine and upright. * Extremities: Reports ability to indent skin of lower legs and back (possible edema). * Denies use of compression stockings. Does not monitor weight regularly. Family History: Denies family history of heart failure. Related Data Home Medications ?Medication ?Instructions ?Recorded ?Confirmed gabapentin 300 mg capsule 300 mg PO TID 10/18/25 haloperidol 10 mg tablet 10 mg PO BEDTIME 10/18/25 haloperidol 5 mg tablet 5 mg PO BEDTIME 10/18/25 hydroxyzine pamoate 50 mg capsule 50 mg PO QID PRN ANX IETY/SLEEP 10/18/25 melatonin 10 mg capsule 10 mg PO BEDTIME PRN insomni a 10/18/25 naltrexone 50 mg tablet 50 mg PO DAILY 10/18/25 trazodone 150 mg tablet 150 mg PO BEDTIME 10/18/25 trazodone 50 mg tablet 50 mg PO BEDTIME 10/18/25 Allergies Allergy/AdvReac Type Severity Reaction Status Date / Time Penicillins Allergy Facial Verified 10/18/25 10:08 Swelling Review of Systems 2 Review of Systems: Yes all other systems are reviewed and are negative PMFSH Past Medical History Attestation statement: The following information was validated with the patient. Source: old records reviewed and nursing notes reviewed Medical History Overdose Polysubstance abuse Social History Social History Advance Directives: No Advance Directives Information Provided: No Physical Exam ED Exam Exam: General: Appears in no acute distress, appears well nourished body habitus is [x], appears [stated age]. No septic or ill-appearing. Vitals reviewed normal, PMH/Social and Surgical hx reviewed including allergies and current medications. - reviewed for prior visits here Head: Normocephalic, no obvious trauma or skin lesions noted. Eyes: EOMI no scleral icterus conjunctiva and sclerae are clear ENMT: moist oral mucosa Neck: trachea midline Cardiovascular: peripheral perfusion normal, +3 pitting edema bilateral lower extremities spans from foot to [place], cap refill less than 3 seconds distal pulses 2+, no murmurs appreciated Respiratory: no respiratory distress, lungs clear to auscultation bilaterally to use volume in the lower lobes but otherwise no crackles or rales Abdomen: nondistended nontender Extremities: warm and moving without difficulty Psych: Cooperative Neuro: Alert and oriented. Vital Signs: Vital Signs - 24 hr 10/18/25 10:07 Temperature 97.0 F Pulse Rate 108 H Respiratory Rate 16 Blood Pressure 136/87 Pulse Oximetry 98 Oxygen Delivery Method Room Air BMI result Body Mass Index 25.1 Course Course Course Narrative: Rapid medical examination performed in triage by Jennifer Lewis PA-C: Patient is a 40 year old male presenting to the emergency department with a cough and intermittent chest pain. Patient states over the last few days he has had a cough and intermittent chest pain. Detailed physical exam and review of systems are deferred to the speech and language clinician. EKG, labs, imaging, swabs ordered. Patient placed back in the waiting room pending room availability and results. Procedures Ultrasound ED POC Ultrasound: EMERGENCY ULTRASOUND INTERPRETATION-Limited Echocardiography? The study reveals:? Impression: poor LV FUNCTION, NO RV DYSFUNCTION, small PERICARDIAL EFFUSION Emergent Cardiac for Indication:?SOb, peripheral edema, elevated BNP Views Used: PLAX, PSSA, A4, SX, IVC Pericardial Effusion/Tamponade Findings: no tamponade RV Dilation (> LV diam in 4ch apical):? dilated Global LV Fxn: impaired IVC Dilation and Resp Variation: nondiagnostic Performed by: Manasa Hanks PA-C Date: 10/18/2025 Time: 1145 am Credentialed Reviewing Physician?s Attestation: I, Dr. Pricila Hernández, personally reviewed the image(s) and agree with the provider?s Interpretation. Medical Decision Making Medical Decision Making MDM Narrative: 40-year-old male presenting with new-onset acute decompensated heart failure?characterized by three days of exertional dyspnea, chest pain, cough, and peripheral edema.?Diagnostic workup confirmed heart failure?with markedly elevated proBNP (7,483.6 pg/mL), chest X-ray demonstrating pulmonary venous redistribution and interstitial edema consistent with CHF, and bedside echocardiography revealing poor left ventricular systolic function with a small pericardial effusion.?Negative troponin excluded acute coronary syndrome as the precipitant, though mild transaminitis and lymphocytosis warrant further evaluation for potential etiologies including viral myocarditis, cardiomyopathy, or other non-ischemic causes common in young adults.Absence of acute kidney injury supports safe initiation of diuretic therapy.?Initial management with 80 mg IV furosemide was appropriate?for acute volume overload, and?hospital admission is indicated?for new-onset heart failure to establish the underlying etiology, optimize volume status, initiate guideline-directed medical therapy (including ARNI/LAISHA inhibitor, beta-chris, mineralocorticoid antagonist, and SGLT2 inhibitor), and provide comprehensive heart failure education.?Cardiology consultation was obtained and agreed with the management plan. The patient's young age necessitates thorough investigation for reversible or treatable causes, including ischemic evaluation, assessment for genetic cardiomyopathies, and consideration of cardiotoxic exposures, as these etiologies predominate in this age group. 40-year-old male with new-onset decompensated heart failure presenting with exertional SOB, chest pain, cough, peripheral edema, markedly elevated ProBNP, abnormal chest X-ray, and bedside echo showing poor LV function. Problem #1: Acute decompensated heart failure Assessment: Clinical presentation, markedly elevated ProBNP, chest X-ray findings of pulmonary edema, and bedside echo demonstrating poor LV function are all diagnostic for heart failure exacerbation. Plan: * Diuresis: 80 mg IV furosemide given; monitor response. * Consults: PARS consulted; will review formal echocardiogram when available. * Diagnostics: Chest X-ray and bedside cardiac ultrasound completed; awaiting formal echo. * Disposition: Patient admitted to the medicine service for new-onset decompensated heart failure for further management, monitoring, and heart failure education. Cardiology service was consulted and agreed with the management plan. Ongoing diuresis and close monitoring will be continued, with multidisciplinary management as indicated. Plan and disposition were discussed with the patient at bedside, and he agreed with the approach. Differential Diagnosis Differential Diagnoses: The differential diagnosis associated with the presentation includes ACS, heart failure, pericardial effusion, Admission/Observation Consideration of admission/observation: Escalation of care including admission/observation considered Consult Healthcare Provider Management of the patient was discussed with: Hospitalist and Hunting Guide Lab Data MDM Lab Attestation statement: I reviewed the patient's lab results. * ProBNP 7,483.6 pg/mL. * CBC: No anemia; lymphocytosis noted, leukopenia 3.8. * CMP: K? 5.5 mmol/L (outside ED, 2 days ago), Cl? 110 mmol/L (outside ED); no ANNETTE. * Liver panel: AST 52 U/L, total bilirubin 1.4 mg/dL. * Cardiac enzymes: Troponin negative. * Viral testing: COVID-19, influenza, RSV PCR all negative (outside ED). 10/18/25 10:31 10/18/25 10:31 Labs: Lab Results 10/18/25 Range/Units 10:31 WBC 3.8 L (4.8-10.8) X10*3/uL RBC 5.62 (4.60-5.80) X10*6/uL Hgb 15.0 (14.0-18.0) g/dl Hct 47.6 (42.0-52.0) % MCV 84.7 (80.0-98.0) fL MCH 26.7 L (27.0-33.0) pg MCHC 31.5 (31.0-36.0) g/dl RDW 16.6 H (11.0-16.0) % Plt Count 427 H (160-400) X10*3/uL MPV 9.0 L (9.4-12.4) fL Immature Gran % (Auto) 0.5 H (0.0-0.4) % Neut % (Auto) 26.8 L (45-73) % Lymph % (Auto) 44.3 H (20-40) % Luce % (Auto) 27.1 H (2-11) % Eos % (Auto) 0.5 (0-4) % Baso % (Auto) 0.8 (0-2) % Lymph # (Auto) 1.7 (1.2-4.9) X10*3/uL Luce # (Auto) 1.0 (0.1-1.2) X10*3/uL Eos # (Auto) 0.0 (0.0-0.4) X10*3/uL Baso # (Auto) 0.0 (0.0-0.2) X10*3/uL Abs Immat Gran (auto) 0.02 (0.00-0.03) X10*3/uL Absolute Neuts (auto) 1.0 L (2.0-8.3) x10*3/uL Absolute Nucleated RBC 0.000 (0.0-0.012) X10*3/uL Nucleated RBC % (auto) 0.0 (0.0-0.2) /100WBC Smear Tech's Comments VERIFIED Sodium 143 (135-145) mmol/L Potassium 4.7 (3.3-5.1) mmol/L Chloride 112 H (96-108) mmol/L Carbon Dioxide 24 (22-29) mmol/L Anion Gap 12 (12-20) BUN 19 H (9-16) mg/dL Creatinine 1.14 (0.5-1.4) mg/dL Estim Creat Clear Calc 81.6 Estimated GFR > 60 Random Glucose 87 (60-115) mg/dL Calcium 9.1 (8.4-10.2) mg/dL Magnesium 1.9 (1.6-2.6) mg/dL Total Bilirubin 1.4 H (0.0-1.0) mg/dL AST 52 H (5-37) U/L ALT 40 (0-40) U/L Alkaline Phosphatase 64 (39-117) U/L Troponin I High Sens 10.9 (<3.5-35.0) ng/L NT-Pro-B Natriuret Pep 7483.6 H (<300) pg/mL Total Protein 6.1 L (6.5-8.0) g/dL Albumin 3.2 L (3.5-5.0) g/dL Influenza Type A (PCR) NEGATIVE (Negative) Influenza Type B (PCR) NEGATIVE (Negative) RSV RNA Qual (PCR) NEGATIVE (Negative) SARS-CoV-2 RNA (RT-PCR) NEGATIVE (Negative) Independent Interpretation I performed an independent interpretation of an: EKG, Plain X-Ray and Ultrasound Interpretation: EKG: no malignant arrhythmia, CXR: pulmonary effusion, cardiomegaly, bedside echo: pericardial effusion, poor LV function Radiology Impression Discussion of test interpretation with radiology: I have reviewed the radiologist's reading. External Record Review External record reviewed: Outside ED record ([facility]) Tests considered The following testing was considered but not selected: See MDM Chronic Conditions Patient?s care impacted by: Other Social Determinants Patient?s care significantly limited by Social Determinants of Health including: Problems related to primary support group and Other Social Determinant of Health Critical Care Time Critical Care Time Critical Care Time: Yes Total Critical Care Time: 45 Attestation: This patient required critical care. Due to the fact that the patient required a significant amount of one on one physician ? patient contact time, ordering and review of studies, arranging urgent treatment with development of a management plan, evaluation of patient?s response to treatment with frequent reassessments, and discussions with other providers this patient required critical care time in excess of 30 minutes. Critical care time was indicated due to the inherent instability and/or potential for instability in this patient. The critical care time that is allocated to this patient is above and beyond any time spent on any other billable procedures performed on this patient. Discharge Plan Discharge Clinical Impression: Heart failure, Acute pericardial effusion, Breath shortness Patient Disposition: Admitted As Inpatient Print Language: Occitan
--- NOTE | 2025-10-18 10:14 | ECG_ITS ---
Test Reason : SOB Blood Pressure : */* mmHG Vent. Rate : 102 BPM Atrial Rate : 102 BPM P-R Int : 124 ms QRS Dur : 126 ms QT Int : 382 ms P-R-T Axes : 65 64 245 degrees QTcB Int : 497 ms Sinus tachycardia Possible Left atrial enlargement Left bundle branch block Abnormal ECG When compared with ECG of 03-May-2025 01:06, No significant changes seen Referred By: Jennifer Lewis Electronically Signed By: ANI MONTAÑO
[2025-10-18 10:45] LABS: Hematocrit 47.6 % (42.0-52.0); Hemoglobin 15.0 g/dl (14.0-18.0); Imm Gran Abs Auto 0.02 X10*3/uL (0.00-0.03); Imm Gran Pct Auto 0.5 % (0.0-0.4); Lymphocytes Absolute Auto 1.7 X10*3/uL (1.2-4.9); MANUAL DIFF FLAG SCAN; Mean Corpuscular HGB Conc 31.5 g/dl (31.0-36.0); Mean Corpuscular Hemoglobin 26.7 pg (27.0-33.0); Mean Corpuscular Volume 84.7 fL (80.0-98.0); NRBC Abs Auto 0.000 X10*3/uL (0.0-0.012); NRBC Pct Auto 0.0 /100WBC (0.0-0.2); Platelet Count 427 X10*3/uL (160-400); Red Blood Count 5.62 X10*6/uL (4.60-5.80); SCAN SMEAR FLAG 1; White Blood Count 3.8 X10*3/uL (4.8-10.8)
[2025-10-18 11:01] LABS: Alanine Aminotransferase 40 U/L (0-40); Albumin Level 3.2 g/dL (3.5-5.0); Alkaline Phosphatase 64 U/L (39-117); Anion Gap 12 (12-20); Aspartate Amino Transferase 52 U/L (5-37); Blood Urea Nitrogen 19 mg/dL (9-16); Calcium 9.1 mg/dL (8.4-10.2); Carbon Dioxide 24 mmol/L (22-29); Chloride 112 mmol/L (96-108); Creatinine Clr Calc Pharmacy 81.6; Estimated Glomerular Filt Rate > 60; Magnesium 1.9 mg/dL (1.6-2.6); Potassium 4.7 mmol/L (3.3-5.1); Sodium 143 mmol/L (135-145); Total Protein 6.1 g/dL (6.5-8.0)
[2025-10-18 11:08] LABS: Troponin-I High Sensitivity 10.9 ng/L (<3.5-35.0)
[2025-10-18 11:25] LABS: Resp Syncy Virus RNA Qual PCR NEGATIVE (Negative); SARS COV2 PCR INHOUSE NEGATIVE (Negative)
--- NOTE | 2025-10-18 12:00 | CA_ITS ---
Transthoracic Echocardiogram Patient (Last, First, Middle): Todd Vazquez, Gender: Male Date of : 1985 Age: 40 Procedure Date: 10/18/2025 Procedure Type: Transthoracic Echocardiogram Location: ER Height: 172. cm Weight: 74.84 kg BSA: 1.88 m2 Heart Rate: 100 bpm BP: 134 / 96 mmHg Family Member Caretaker: ORESTES Referring MD: Shelia Meneses NP Symptoms: CHF Study Quality: Adequate ECG Rhythm: Sinus Conclusions: - The left ventricular systolic function is severely decreased. The visually estimated ejection fraction is <10%. - No obvious valvular pathology seen on this study. - [id number] circumferential pericardial effusion. Findings Left Ventricle Normal left ventricular cavity size. There is mildly increased left ventricular wall thickness. The left ventricular systolic function is severely decreased. The visually estimated ejection fraction is <10%. Abnormal diastolic function is noted. Elevated mean left atrial pressure. Right Ventricle Normal right ventricular cavity size. There is mildly decreased right ventricular systolic function. Atria Both atria are normal in size. Aortic Valve There is a normal trileaflet aortic valve. There is no aortic valve stenosis. There is trace (trivial) aortic valve regurgitation. Mitral Valve The mitral valve appears normal. There is trace mitral valve regurgitation. There is no mitral valve stenosis. Pulmonic Valve The pulmonic valve is likely normal. Tricuspid Valve There is mild tricuspid valve regurgitation. Mild pulmonary hypertension is present. Great Vessels The asc aorta is normal in size. Venous The inferior vena cava is mildly dilated and collapses greater than 50% with inspiration. Pericardium/Pleural There are no definitive echocardiographic findings of tamponade physiology. Imarf-er-[id number] circumferential pericardial effusion. Prior Study Comparison No prior study available for comparison. Recommendations, Care & Conclusions No obvious valvular pathology seen on this study. Measurements 2D Linear Measurements IVSd: 1.04 0.6-0.9/0.6-1.0 cm LVIDd: 5.28 3.9-5.3/4.2-5.9 cm LVIDd Index: 2.81 2.4-3.2/2.2-3.1 cm/m2 LVIDs: 5.07 2.0-3.6 cm LVPWd: 1.16 0.7-1.1 cm LA Diam: 4.00 2.7-3.8/3.0-4.0 cm LAIDs Index: 2.13 1.5-2.3 cm/m2 LV Mass: 282.16 67-162/88-224 g LV Mass Index: 150.09 43-95/49-115 g/m2 LVOT Diam: 2.00 3.0+(-)1.3 cm 2D Systolic Function EF 4C: 16.10 >55% EF 2C: 24.90 >55% EF BiP: 21.30 >55% Mitral Valve MV VTI: 0.24 MV Pk Chuckie: 1.29 MV Mn Chuckie: 0.86 MV Pk Grad: 7.00 MV Mn Grad: 3.00 MV Pk E: 1.21 MV Decel Time: 130.00 E'Lateral: 8.24 E'Medial: 6.05 E/E' Med: 20.00 E/E' Lat: 14.70 PHT: 38.00 MVA PHT: 5.79 MVA Continuity: 1.04 Decel [place]: 9.32 Aortic Valve AoV Pk Chuckie: 0.99 AoV Mn Chuckie: 0.73 AoV VTI: 0.16 AoV Pk Grad: 4.00 Aov Mn Grad: 2.00 URBAN Cont.VTI: 1.59 LVOT LVOT Pk Chuckie: 0.56 LVOT Mn Chuckie: 0.40 LVOT VTI: 0.08 LVOT Pk Grad: 1.00 LVOT Mn Grad: 1.00 LVOT Diam: 2.00 LVOT Area: 3.14 Diastolic Function MV Pk E: 1.21 E'Medial: 6.05 E/E' Med: 20.00 E' Laterial: 8.24 E/E' Lat: 14.70 Right Ventricle TAPSE (mm): 15.00 TVS' Chuckie: 7.18 Tricuspid Valve TR Pk Chuckie: 2.81 TR Pk Grad: 32.00 RA Press: 8.00 RVSP: 40.00 Great Vessels Aorta Sinus of Valsalva: 2.70 2.0-3.5 cm Ao Asc: 2.80 2.1-3.4 cm Pulmonary Veins Pulm Vein S/D 0.80 Pulmonary Valve PV Pk Chuckie: 0.86 Peak PV Grad: 3.00 Updated in Other Vendor System with Status of Final Sebastián Aaron MD electronically signed on 10/18/2025 3:53:30 PM with status of Final
--- NOTE | 2025-10-18 12:10 | PM.IMHP ---
History of Present Illness Date of Service: 10/18/25 Chief Complaint: Shortness of breath 40 year old man Todd presents with approximately three days of shortness of breath (SOB) and intermittent chest pain. SOB is worse with exertion and occurs both when lying flat and sitting upright. He also reports a cough and a generalized ?weird? body sensation with the ability to press into the skin of his legs and back, suggestive to him of swelling. He denies fever. He previously went to a community ED for similar symptoms but left prior to evaluation due to long wait times; laboratory work and an EKG were completed there (details below). He has no history of reactive airway disease, myocardial infarction, or hypertension. He missed a primary care appointment earlier this month while moving but is scheduled to see his PCP next month. Review of Systems Review of Systems: Denies any recent fever chills or decrease in appetite respiratory denies any shortness of breath or cough cardiovascular denied chest pain gastrointestinal denies any dysphagia abdominal pain nausea vomiting or diarrhea genitourinary denies any dysuria frequency or hematuria musculoskeletal denies any joint pain or swelling neuropsych denies any weakness or seizures all other systems reviewed are negative [facility] Medical History Overdose Polysubstance abuse Social History Advance Directives: No Advance Directives Information Provided: No Meds Allergies Allergy/AdvReac Type Severity Reaction Status Date / Time Penicillins Allergy Facial Verified 10/18/25 10:08 Swelling Active Medications: Current Medications Acetaminophen (Acetaminophen 325 Mg Tablet) 650 mg PO Q6H PRN PRN Reason: Pain, Mild 1-3,fever,headache Calcium Carbonate (Calcium Carbonate 750 Mg Tab.Chew) 750 mg PO Q4H PRN PRN Reason: Heartburn Enoxaparin Sodium (Enoxaparin Sodium 40 Mg/0.4 Ml Syringe) 40 mg SUBCUT Q24H MARY ALICE Furosemide (Furosemide 40 Mg/4 Ml Vial) 40 mg IVPUSH BID@0900,1800 MARY ALICE; Protocol Magnesium Hydroxide (Milk Of Magnesia 30 Ml Oral.Susp) 30 ml PO DAILY PRN PRN Reason: Constipation Melatonin (Melatonin 3 Mg Tablet) 6 mg PO BEDTIME PRN PRN Reason: Insomnia Ondansetron HCl (Ondansetron Hcl 4 Mg/2 Ml Vial) 4 mg IVPUSH Q8H PRN PRN Reason: Nausea and Vomiting Sodium Chloride (0.9 % Sodium Chloride Flush 3 Ml Syringe) [facility]ations ?Medication ?Instructions ?Recorded ?Confirmed ?Last Taken ?Type gabapentin 300 mg capsule 300 mg PO TID 10/18/25 10/18/25 10/16/25 History haloperidol 10 mg tablet 10 mg PO BEDTIME 10/18/25 10/18/25 10/16/25 History haloperidol 5 mg tablet 5 mg PO BEDTIME 10/18/25 10/18/25 10/16/25 History hydroxyzine pamoate 50 mg capsule 50 mg PO QID PRN ANXIETY/SLEEP 10/18/25 10/18/25 10/16/25 History ibuprofen 200 mg tablet 400 mg PO Q8H PRN Pain 10/18/25 10/18/25 Unknown History melatonin 10 mg capsule 10 mg PO BEDTIME PRN insomnia 10/18/25 10/18/25 Unknown History naltrexone 50 mg tablet 50 mg PO DAILY 10/18/25 10/18/25 10/16/25 History trazodone 150 mg tablet 75 mg PO BEDTIME PRN Anxiety/Sleep 10/18/25 10/18/25 10/16/25 History trazodone 50 mg tablet 25 mg PO BEDTIME PRN Anxiety/Sleep 10/18/25 10/18/25 10/16/25 History Physical Exam Vital Signs and Narrative: Vital Signs: Last Vital Signs Temp 97.0 F 10/18/25 10:07 Pulse 108 H 10/18/25 10:07 Resp 16 10/18/25 10:07 BP 136/87 10/18/25 10:07 Pulse Ox 98 10/18/25 10:07 O2 Del Method Room Air 10/18/25 10:07 BMI result Body Mass Index 25.1 Appearing in no acute distress head is normocephalic atraumatic eyes pupils are PERRLA sclera is anicteric mouth throat mucous membranes are intact and moist neck is supple no lymphadenopathy, no JVD noted lung sounds are clear to auscultation heart regular rate rhythm, clear S1, S2 positive bowel sounds, abdomen is soft, nontender neuro patient is alert x3, no focal deficits Results Labs 10/18/25 10:31 10/18/25 10:31 Labs: Laboratory Results - last 24 hr 10/18/25 10:31 MCV 84.7 MCH 26.7 L MCHC 31.5 RDW 16.6 H Plt Count 427 H MPV 9.0 L Immature Gran % (Auto) 0.5 H Neut % (Auto) 26.8 L Lymph % (Auto) 44.3 H [place] % (Auto) 27.1 H Eos % (Auto) 0.5 Baso % (Auto) 0.8 Lymph # (Auto) 1.7 [place] # (Auto) 1.0 Eos # (Auto) 0.0 Baso # (Auto) 0.0 Abs Immat Gran (auto) 0.02 Absolute Neuts (auto) 1.0 L Absolute Nucleated RBC 0.000 Nucleated RBC % (auto) 0.0 Smear Tech's Comments VERIFIED Anion Gap 12 Estim Creat Clear Calc 81.6 Estimated GFR > 60 Random Glucose 87 Calcium 9.1 Magnesium 1.9 Total Bilirubin 1.4 H AST 52 H ALT 40 Alkaline Phosphatase 64 Troponin I High Sens 10.9 NT-Pro-B Natriuret Pep 7483.6 H Total Protein 6.1 L Albumin 3.2 L Influenza Type A (PCR) NEGATIVE Influenza Type B (PCR) NEGATIVE RSV RNA Qual (PCR) NEGATIVE SARS-CoV-2 RNA (RT-PCR) NEGATIVE Imaging Radiologist's Impressions: Impressions Chest X-Ray 10/18/25 10:21 IMPRESSION: Enlarged cardiac silhouette, pulmonary venous redistribution and increased central interstitial markings. Findings are suggestive of mild CHF/pulmonary edema. Electronically signed by: Kim Conn MD 10/18/2025 10:27 AM [facility] Assessment and Plan (1) Heart failure: Qualifiers: Heart failure type: other Qualified Code(s): I50.89 - Other heart failure Status: Acute (2) Polysubstance abuse: Status: Acute Plan 40 year old man admitted with Acute congestive heart failure Acute CHF, unspecified monitor on telemetry PrBNP 7483 IV lasix 40 mg BID Strict intake and output echocardiogram cardiology consultation daily weights Alcohol abuse no hx of withdrawal seizures no withdrawal symptoms at this time Drink 4/5-24oz beers a day start phenobarb protocol Mental health continue home medications Polysubstance abuse Addiction team consultation uses cocaine one weekly smoker Smokes 1 PPD NRT DVT prophylaxis with lovenox full code Quality Stroke Does the patient have a stroke diagnosis?: No VTE Prior VTE?: No VTE Risk Level:: Medical - moderate - high VTE Device Contraindication: Treatment Not Indicated VTE Drug Contraindication: N/A - Med Ordered
[2025-10-18] MEDS: Furosemide 100 MG/10 ML VIAL 80 MG IVPUSH (12:13)
--- OUTSIDE RECORDS SUMMARY | 2025-10-18 12:31 | XMS_ITS | Clinical Summary ---
Author Organization [employer] Address [address] [place] [address] Care Team Providers Care Softlines Supervisor Name Role Phone Unavailable Primary Care Provider Unavailabl e Active Problems Problem Noted Date Diagnosed Date Substance use disorder 05/12/2025 Encounters Date Type Department Care Team Description 10/11/2025 Patient Outreach [facility] [address] [place] [address] Fransico Bolanos [facility] 10/08/2025 Patient Outreach [facility] [address] [place] [address] Richie Villavicencio [facility] 10/08/2025 Patient Outreach [facility] [address] [place] [address] Jc Hale [facility] 10/05/2025 Patient Outreach [facility] [address] [place] [phone] Rafita Quijano [facility] 09/30/2025 Patient Outreach [facility] [address] [place] [address] Fransico Bolanos [facility] 09/28/2025 Patient Outreach [facility] [address] [place] [address] Jc Hale [facility] 09/27/2025 Patient Outreach [facility] [address] [place] [address] Jc Hale [facility] 09/24/2025 Patient Outreach [facility] [address] [place] [address] Rafita Quijano [facility] 09/23/2025 Patient Outreach [facility] [address] [place] [address] Jc Hale [facility] 09/21/2025 Patient Outreach [facility] [address] [place] [address] Rafita Quijano 09/09/2025 Patient Outreach [facility] [address] [place] [address] Fransico Bolanos [facility] 09/07/2025 Patient Outreach [facility] [address] [place] [address] Rafita Quijano [facility] 09/06/2025 Patient Outreach [facility] [address] [place] [address] Jc Hale [facility] 09/03/2025 Patient Outreach [facility] [address] [place] [address] Jc Hale [facility] 08/31/2025 Patient Outreach [facility] [address] [place] [address] Rafita Quijano [facility] 08/26/2025 Patient Outreach [facility] [address] [place] [address] Fransico Bolanos [facility] 08/23/2025 Patient Outreach [facility] [address] [place] [address] Jc Hale [facility] 08/19/2025 Patient Outreach [facility] [address] [place] [address] Fransico Bolanos [facility] 08/16/2025 Patient Outreach [facility] [address] [place] [address] Richie Villavicencio [facility] 08/10/2025 Patient Outreach [facility] [address] [place] [address] Rafita Quijano [facility] 08/05/2025 Patient Outreach [facility] [address] [place] [address] Rafita Quijano [facility] 08/03/2025 Patient Outreach [facility] [address] [place] [address] Rafita Quijano [facility] 08/02/2025 Patient Outreach [facility] [address] [place] [address] Jc Hale [facility] 07/29/2025 Patient Outreach [facility] [address] [place] [address] Fransico Bolanos [facility] 07/27/2025 Patient Outreach [facility] [address] [place] [address] Rafita Quijano [facility] 07/26/2025 Patient Outreach [facility] [address] [place] [address] Richie Villavicencio [facility] 07/20/2025 Patient Outreach [facility] [address] [place] [address] Rafita Quijano [facility] from Last 3 Months Social History Tobacco Use Types Packs/Day Years Used Date Smoking Tobacco: Never Assessed Sex and Gender Information Value Date Recorded Sex Assigned at Male 09/30/2024 9:26 AM EST Legal Sex Male 2:31 PM EST Gender Identity Male 09/30/2024 9:26 AM EST Sexual Orientation Straight 09/30/2024 9: 26 AM EST Plan of Treatment Health Maintenance Due Date Last Done Comments Depression Screening 1983 HIV Screening 1983 Lipid Panel 1983 SDOH Screening 1983 Disability Screening 1983 Alcohol/Substance Use Screening 1995 Tobacco Screening 1995 Family Planning (PISQ) 1998 HPV Vaccines (1 - Male 3-dos e series) 1998 Hepatitis C Screening 2001 Hepatitis B Vaccines (2 of 3 - 19+ 3-dose series) 07/03/2022 06/05/2022 DTaP/Tdap/Td Vaccines (3 - T d or Tdap) 08/18/2022 08/18/2012, 06/23/2012 COVID-19 Vaccine (1 - 2024-2 6 season) 2025 Influenza Vaccine (#1) 2025 Zoster Vaccines (1 of 2) 2033 RSV Patients and Patients Aged 60 years or older (1 - 1-dose 75+ series) 2058 HIB Vaccines Aged Out No longer eligi ble based on patient's age to complete this topic Hepatitis A Vaccines Aged Out No long er eligible based on patient's age to complete this topic IPV Vaccines Aged Out No longer eligi ble based on patient's age to complete this topic Meningococcal B Vaccine Aged Out No l onger eligible based on patient's age to complete this topic Meningococcal Vaccine Aged Out No colleen ronnie eligible based on patient's age to complete this topic Pneumococcal Vaccine: Pediatrics (0 to 5 Years) and At-Risk Patients (6 to 49) Years Aged Out No longer eligible b ased on patient's age to complete this topic RSV under 20 months Aged Out No longe r eligible based on patient's age to complete this topic Rotavirus Vaccines Aged Out No longer eligible based on patient's age to complete this topic Insurance [facility] C[facility]
--- OUTSIDE RECORDS SUMMARY | 2025-10-18 12:32 | XMS_ITS | Patient Health Record ---
Author Organization [facility] Address [address] [place] [address] Care Team Providers Care Piano Mechanic Name Role Phone Kim Harrison Primary Care Provider Bhavana Higuera Unavailable [phone] Migration, Provider Unavailable Unavailable Allergies Allergen (clinical drug ingredient) Drug/Non Drug Allergy documented on EMR Reaction Allergy Type Onset Date Status Penicillin mother told him he was allergoic to it. Drug Allergy Active Reason For Referral No Information Medications Medication SIG (Take, Route, Frequency, Duration) Notes Start Date End Date Status Melatonin 5 MG 1 -2tab(s) orally once a day (at bedtime) as needed Active ALUMINUM HYDROXIDE/MAGNESIUM HYDROXIDE/SIMETHICONE 200 MG-200 MG-20 MG/5 ML 30 ML ORALLY 4 TIMES A DAY (AFTER MEALS AND AT BEDTIME) NEEDED *Please review for potential replacement for e-prescription and drug interaction check* Not-Taking Naltrexone HCl 50 MG 1 tab(s) orally once a day PRN Not-Taking Calcitrate Plus D 315 MG-6.25 MCG 1 TAB(S) ORALLY DAILY for 90 DAYS Vit D defic *Please review and pick correct strength-formula tion from [employer] options. If intended option is not shown, discontinue and re-order from Quick Search* Active diphenhydrAMINE HCl 25 MG 1 cap(s) orally qhs Unknown Nicoderm CQ 21 MG/24HR 1 PATCH transdermally once a day Not-Taking BUPROPION SR 100 MG 1 TAB(S) ORALLY 2 TIMES A DAY *Please review for potential replacement for e-prescription and drug interaction check* Not-Taking hydrOXYzine HCl 25 MG 1-2 tab(s) orally BID PRN Active Ferrous Sulfate 324 MG 1 TAB(S) ORALLY ONCE A DAY pls deliver to address *Please review and pick correct strength-formula tion from [employer] options. If intended option is not shown, discontinue and re-order from Quick Search* 04/05/2023 Active Ibuprofen 600 MG 1 tab(s) orally tid PRN Rt arm pain Active metFORMIN HCl 500 MG 1 tab(s) orally 2 times a day Active Acetaminophen 325 MG 2 tab(s) orally every 6 hours as needed Active Folic Acid 1 MG 1 tab(s) orally once a day for 30 day(s) AUD Unknown OLANZapine 5 MG 1 tab(s) orally once a day Active Multi Vitamin MULTIPLE VITAMINS 1 CAP(S) ORALLY ONCE A DAY for 28 DAY(S) *Please review and pick correct strength-formula tion from [employer] options. If intended option is not shown, discontinue and re-order from Quick Search* 08/07/2021 Unknown traZODone HCl 150 MG 1 tab(s) orally qhs PRN for 15 days No further RFs w/o appt with [facility] Active Thiamine HCl 100 MG 1 tab(s) orally once a day Active Escitalopram Oxalate 20 MG 1 tab(s) orally once a day for 30 days Active Immunizations Vaccine Route Administration Date Status Comme nts Influenza: Declined Unknown 11/20/2011 Administered Pneumococcal: declined Unknown 11/20/2011 Administered Td offered and declined Unknown 11/20/2011 Administered PPD negative Unknown 02/27/2012 Administered 0mm negati ve PPD planted Unknown 02/25/2012 Administered Influenza: Declined Unknown 08/04/2012 Administered Tdap IM Intramuscular 08/18/2012 Administered PPD planted ID Intradermal 12/16/2012 Administered PPD planted ID Intradermal 01/02/2013 Administered PPD negative Unknown 01/05/2013 Administered Hepatitis B (20 or more) IM Intramuscular 06/05/2022 Administered Social History Tobacco Use: Social History Observation Description Date Details (start date - stop date) Current Smoker NA - NA Tobacco Use Assessment MU Question Answer Notes What is your current smoking status? current smo ker How often do you smoke? every day How many cigarettes a day do you smoke? 6-10 How soon after you wake up do you smoke your fir st cigarette? 6-30 minutes Are you interested in quitting? not ready to man t Patient counseled on the ezra gers of tobacco use and advised to quit: 02/24/2024 Section Notes: Housing: At [facility] Housing: At [facility] Housing: At [facility] Housing: At [facility] Housing: At [facility] Housing: At [facility] Housing: At [facility] Housing: At [facility] Housing: At [facility] Housing: At [facility] Housing: At [facility] Housing: At [facility] Problems Problem Type SNOMED Code ICD Code Onset Dates Problem Status W/U Status Risk Notes Problem Iron deficiency anemia (92340810) Iron deficiency anemia, unspecified (D50.9) Active confirmed Problem Vitamin D deficiency (05210713) Vitamin D deficiency, unspecified (E55.9) Active confirmed Problem Obesity (548929072) Obesity, unspecified (E66.9) Active confirmed Problem Alcohol abuse (46340789) Alcohol abuse, uncomplicated (F10.10) Active confirmed Problem Cocaine abuse (35152851) Cocaine abuse, uncomplicated (F14.10) Active confirmed Problem Posttraumatic stress disorder (25389618) Post-traumatic stress disorder, chronic (F43.12) Active confirmed Problem Insomnia disorder related to another mental disorder (59455341) Insomnia due to other mental disorder (F51.05) Active confirmed Problem Snoring (00567941) Snoring (R06.83) Active confirmed Problem Paresthesia (finding) (35158159) Paresthesia of skin (R20.2) Active confirmed Problem Feeling suicidal (939216266) Suicidal ideations (R45.851) Active confirmed Problem Tobacco use (666154484) Tobacco use (Z72.0) Active confirmed Problem Prediabetes (307499619) Prediabetes (R73.03) Active confirmed Problem Body mass index 30.00 to 34.99 (368306949844401) Body mass index [BMI] 31.0-31.9, adult (Z68.31) Active confirmed Problem Thrombocytosis (disorder) (4401566) Thrombocytosis, unspecified (D75.839) Active confirmed Problem Depression Screening (789841196) Encounter for screening for depression (Z13.31) Inactive confirmed Problem Body mass index 30.00 to 34.99 (917538963159002) Body mass index [BMI] 32.0-32.9, adult (Z68.32) Inactive confirmed Problem Body mass index 35.00 to 39.99 (921281482525762) Body mass index [BMI] 36.0-36.9, adult (Z68.36) Inactive confirmed Problem Body mass index 35.00 to 39.99 (751514187051646) Body mass index [BMI] 37.0-37.9, adult (Z68.37) Inactive confirmed Problem Sheltered homelessness (677537667708179) Sheltered homelessness (Z59.01) Problem resolved confirmed Encounters Encounter Location Date Provider Diagnosis [address] [address] 07/03/2025 Provider Migration [facility] [address] [place] [id number] 03/16/2025 Bhavana Higuera [facility] [address] [place] [id number] 10/05/2025 Bhavana Higuera Assessments Encounter Date Diagnosis (ICD Code) Assessment Notes Treatment Notes Treatment Clinical Notes Section Notes 08/11/2025 Other 09/13/2025 Other Plan Of Treatment Pending Test Test Name Order Date CBC - [facility] 07/21/2012 AST/ALT 07/21/2012 CK (Creatine Kinase) 09/20/2014 HIV 09/20/2014 HIV 07/21/2012 Comprehensive Metabolic Panel - [facility] 09/20/2014 CBC with Diff - [facility] 09/20/2014 total cholesterol 07/21/2012 Hep C Antibody - [facility] 09/20/2014 Hepatitis ABC Profile 07/21/2012 CKMB (Creatine Kinase Confirmation-Quant ) 09/20/2014 LDL, Direct 07/21/2012 Treponemal AB with reflex to RPR 014 Next Appt Details Provider Name:Kim Deisi lore, 11/01/2025 11:30:00 AM, [address] [place] [address], [phone], Insurance Providers Payer Name Payer Address Payer Phone Subscriber Number Group Number Insured Name Patient Relationship to Insured Coverage Start Date Coverage End Date [place] Medicaid C3 [address] [place], [place] [id number] George, Juan Self - patient is the insured 1 Medical (General) History Medical History History ICD Code tobacco user- started at age 13, typical ly 3-4 cig per day. alcohol and drug use hx l knee problems- snaps when I run-disloc ates depression Sheltered homelessness (resolved 023) Hospitalization History Reason Date(Month/Year) SI, Auditory Hallucination, Paranoia 02/18 04/12-03/13/23 2 detoxes in past
--- NOTE | 2025-10-18 12:47 | PHA.MEDREC ---
Addendum entered by Ivan Agosto PharmD 10/18/25 12:55: reviewed Original Note: Pharmacy Consult ? Medication Reconciliation Pharmacy has completed the medication reconciliation. Spoke with pt and he confirmed his medications. Pt confirmed he is taking Trazodone 50mg tabs and 150mg tabs and originally suppose to be taking 1, 50mg and 1, 150mg tab once daily at bedtime for TDD 200mg, but states he has been cutting them in half and taking 1/2 of 50mg tabs (25mg) and 1/2 tabs of 150mg(75) for TDD of 100mg daily and will take other half of tabs if he absolutely needs too.
[2025-10-18 13:04] LABS: Cannabinoid Screen Urine Not Detected (Not Detect)
[2025-10-18] MEDS: PHENobarbitaL sodium 130 MG/ML IM ONCE 273 MG IM (15:41)
[2025-10-18] MEDS: Nicotine 14 MG PATCH.TD24 TRANSDERMA (16:30)
[2025-10-18] MEDS: 0.9 % Sodium Chloride Flush 3 ML SYRINGE IVFLUSH ×2 (16:32→21:12)
[2025-10-18] MEDS: PHENobarbitaL sodium 130 MG/ML VIAL IM Q3Hx2 205 MG IM ×2 (18:05→21:11)
[2025-10-18] MEDS: Furosemide 40 MG/4 ML VIAL IVPUSH (18:08)
[2025-10-19 07:10] LABS: Hematocrit 41.9 % (42.0-52.0); Hemoglobin 13.6 g/dl (14.0-18.0); Mean Corpuscular HGB Conc 32.5 g/dl (31.0-36.0); Mean Corpuscular Hemoglobin 27.0 pg (27.0-33.0); Mean Corpuscular Volume 83.1 fL (80.0-98.0); NRBC Abs Auto 0.000 X10*3/uL (0.0-0.012); NRBC Pct Auto 0.0 /100WBC (0.0-0.2); Platelet Count 349 X10*3/uL (160-400); Red Blood Count 5.04 X10*6/uL (4.60-5.80); White Blood Count 4.5 X10*3/uL (4.8-10.8)
[2025-10-19 07:28] VITALS: BP 110/78; PULSE 100; RESP 20; TEMP 36.2; O2SAT 97
[2025-10-19 07:28] LABS: NT Pro B Type Natriuretic Pept 6839.0 pg/mL (<300)
[2025-10-19 08:12] LABS: Alanine Aminotransferase 34 U/L (0-40); Albumin Level 2.7 g/dL (3.5-5.0); Alkaline Phosphatase 51 U/L (39-117); Anion Gap 12 (12-20); Aspartate Amino Transferase 48 U/L (5-37); Blood Urea Nitrogen 18 mg/dL (9-16); Calcium 7.9 mg/dL (8.4-10.2); Carbon Dioxide 25 mmol/L (22-29); Chloride 104 mmol/L (96-108); Creatinine Clr Calc Pharmacy 71.0; Estimated Glomerular Filt Rate > 60; Potassium 3.8 mmol/L (3.3-5.1); Sodium 137 mmol/L (135-145); Total Protein 5.0 g/dL (6.5-8.0)
--- NOTE | 2025-10-19 08:36 | P.PNIM_ITS ---
Subjective Subjective Date of Service: 10/19/25 Review of Systems Follow up CHF, CMP still with some sob and edema Physical Exam 2 Exam: Exam: Appearing in no acute distress lung sounds are clear to auscultation heart regular rate rhythm, clear S1, S2 positive bowel sounds, abdomen is soft, nontender neuro patient is alert x3, no focal deficits +2-3 LE pitting bilaterally Vital Signs: Vital Signs: Last Vital Signs Temp 97.2 F 10/19/25 07:28 Pulse 100 10/19/25 07:28 Resp 20 10/19/25 07:28 BP 110/78 10/19/25 07:28 Pulse Ox 97 10/19/25 07:28 O2 Del Method Room Air 10/19/25 07:28 BMI result Body Mass Index 27.5 Objective Data Active Medications Acetaminophen (Acetaminophen 325 Mg Tablet) 650 mg PO Q6H PRN PRN Reason: Pain, Mild 1-3,fever,headache Calcium Carbonate (Calcium Carbonate 750 Mg Tab.Chew) 750 mg PO Q4H PRN PRN Reason: Heartburn Enoxaparin Sodium (Enoxaparin Sodium 40 Mg/0.4 Ml Syringe) 40 mg SUBCUT Q24H [facility] Last Admin: 10/18/25 13:12 Dose: 40 mg Documented By: GREG Folic Acid (Folic Acid 1 Mg Tablet) 1 mg PO DAILY [facility] Furosemide (Furosemide 40 Mg/4 Ml Vial) 40 mg IVPUSH BID@0900,1800 [facility]; Protocol Last Admin: 10/18/25 18:08 Dose: 40 mg Documented By: GREG Gabapentin (Gabapentin 300 Mg Capsule) 300 mg PO TID [facility] Last Admin: 10/18/25 21:11 Dose: 300 mg Documented By: JONATHAN Hydroxyzine HCl (Hydroxyzine Hcl 50 Mg Tablet) 50 mg PO QID PRN PRN Reason: ANXIETY/SLEEP Last Admin: 10/19/25 05:45 Dose: 50 mg Documented By: JONATHAN Magnesium Hydroxide (Milk Of Magnesia 30 Ml Oral.Susp) 30 ml PO DAILY PRN PRN Reason: Constipation Melatonin (Melatonin 3 Mg Tablet) 6 mg PO BEDTIME PRN PRN Reason: Insomnia Melatonin (Melatonin 3 Mg Tablet) 9 mg PO BEDTIME PRN PRN Reason: Insomnia Multivitamins/Vitamin C (Multivitamin Tablet) 1 tab PO BEDTIME [facility] Last Admin: 10/18/25 21:42 Dose: 1 tab Documented By: JONATHAN Nicotine (Nicotine 14 Mg Patch.Td24) 14 mg TRANSDERMA DAILY [facility] Last Admin: 10/18/25 16:30 Dose: 14 mg Documented By: GREG Nicotine Polacrilex (Nicotine Polacrilex 2 Mg Gum) 2 mg BUCCAL Q1H PRN PRN Reason: Nicotine Cravings Last Admin: 10/18/25 15:51 Dose: 2 mg Documented By: MARCO Ondansetron HCl (Ondansetron Hcl 4 Mg/2 Ml Vial) 4 mg IVPUSH Q8H PRN PRN Reason: Nausea and Vomiting Pharmacy Consult (Consult Rx Etoh Phenob Im/Po) 1 each MISCELLANE ONCE PRN; Protocol PRN Reason: Consult order Phenobarbital (Phenobarbital 15 Mg Tablet) 45 mg PO BID [facility] Stop: 10/20/25 21:01 Phenobarbital (Phenobarbital 30 Mg Tablet) 30 mg PO BID [facility] Stop: 10/22/25 21:01 Phenobarbital (Phenobarbital 30 Mg Tablet) 30 mg PO DAILY [facility] Stop: 10/24/25 09:01 Sodium Chloride (0.9 % Sodium Chloride Flush 3 Ml Syringe) 3 ml IVFLUSH QSHIFT [facility] Last Admin: 10/18/25 21:12 Dose: 3 ml Documented By: JONATHAN Thiamine HCl (Thiamine Hcl 100 Mg Tablet) 100 mg PO DAILY [facility] Trazodone HCl (Trazodone Hcl 25 Mg Halftab) 25 mg PO BEDTIME PRN PRN Reason: Anxiety/Sleep Trazodone HCl (Trazodone Hcl 25 Mg Halftab) 75 mg PO BEDTIME PRN PRN Reason: Anxiety/Sleep Labs 10/19/25 05:42 10/19/25 05:42 Labs: Laboratory Results - last 24 hr 10/18/25 10/18/25 10/19/25 10:31 12:43 05:42 MCV 84.7 83.1 MCH 26.7 L 27.0 MCHC 31.5 32.5 RDW 16.6 H 16.4 H Plt Count 427 H 349 MPV 9.0 L 9.7 Immature Gran % (Auto) 0.5 H Neut % (Auto) 26.8 L Lymph % (Auto) 44.3 H [place] % (Auto) 27.1 H Eos % (Auto) 0.5 Baso % (Auto) 0.8 Lymph # (Auto) 1.7 [place] # (Auto) 1.0 Eos # (Auto) 0.0 Baso # (Auto) 0.0 Abs Immat Gran (auto) 0.02 Absolute Neuts (auto) 1.0 L Absolute Nucleated RBC 0.000 0.000 Nucleated RBC % (auto) 0.0 0.0 Smear Tech's Comments VERIFIED Anion Gap 12 12 Estim Creat Clear Calc 81.6 71.0 Estimated GFR > 60 > 60 Random Glucose 87 85 Calcium 9.1 7.9 L D Magnesium 1.9 Total Bilirubin 1.4 H 0.3 AST 52 H 48 H ALT 40 34 Alkaline Phosphatase 64 51 Troponin I High Sens 10.9 NT-Pro-B Natriuret Pep 7483.6 H 6839.0 H Total Protein 6.1 L 5.0 L Albumin 3.2 L 2.7 L Urine Opiates Screen Not Detected Ur Buprenorphine Scrn Not Detected Ur Oxycodone Screen Not Detected Urine Methadone Screen Not Detected Urine Fentanyl Screen Not Detected Ur Barbiturates Screen Not Detected Ur Phencyclidine Scrn Not Detected Ur Amphetamines Screen Not Detected U Benzodiazepines Scrn Not Detected Urine Cocaine Screen POSITIVE H U Marijuana (THC) Screen Not Detected Influenza Type A (PCR) NEGATIVE Influenza Type B (PCR) NEGATIVE RSV RNA Qual (PCR) NEGATIVE SARS-CoV-2 RNA (RT-PCR) NEGATIVE Assessment and Plan (1) Polysubstance abuse: Status: Acute (2) Alcohol abuse: Status: Acute Plan 40 year old man admitted with Acute congestive heart failure Severe cardiomyopathy with HFrEF monitor on telemetry PrBNP 4272, 3873 IV lasix 40 mg BID Strict intake and output echocardiogram with EF of 10% cardiology consultation> start Jardiance and low dose metoprolol ER. will need o/p cath and likely BiV defib daily weights>82kg Alcohol abuse no hx of withdrawal seizures no withdrawal symptoms at this time Drink 4/5-24oz beers a day continue phenobarb protocol Mental health continue home medications Polysubstance abuse Addiction team consultation uses cocaine one weekly Very important that patient does not use drugs or drink alcohol to avoid worsening CMP smoker Smokes 1 PPD NRT DVT prophylaxis with lovenox full code Quality Stroke Does the patient have a stroke diagnosis?: No VTE Prior VTE?: No VTE Risk Level:: Medical - moderate - high VTE Device Contraindication: Treatment Not Indicated VTE Drug Contraindication: N/A - Med Ordered
--- NOTE | 2025-10-19 09:40 | P.CONCA_ITS ---
History of Present Illness History of Present Illness Date of Service: 10/19/25 Chief complaint: CHF Narrative: This is a cardiology consultation regarding shortness of breath and cardiomyopathy/pericardial effusion. Patient has had symptoms of short of breath for the last few days. He denies any baseline shortness of breath prior to this. It seems that he has had symptoms with exertion as well as at rest. History of substance abuse and he was positive for cocaine. Also drinks multiple beers daily. Prior to this, no documented cardiac issues. He had an echocardiogram this admission which shows severe LV dysfunction as well as the pericardial effusion. Hence admitted for further care. He has been receiving diuretics. Today, he states he is feeling better. Seems to be lying down comfortably. Review of Systems 2 Review of Systems: Yes all other systems are reviewed and are negative Constitutional: Constitutional: Reports as per HPI and Reports no additional constitutional complaints Eyes: Eyes: Reports as per HPI and Denies no additional eye complaints ENT: Denies system reviewed and no additional complaints, except as documented and Reports as per HPI Cardiovascular: Cardiovascular: Reports as per HPI, Reports no additional cardiovascular complaints, Denies acrocyanosis, Denies cool extremities, Denies chest pain, Denies leg edema, Denies lightheadedness, Denies palpitations and Reports dyspnea Respiratory: Respiratory: Reports as per HPI, Denies no additional respiratory complaints and Reports dyspnea Gastrointestinal: Gastrointestinal: Reports as per HPI and Denies no additional gastrointestinal complaints Genitourinary: Genitourinary: Reports no additional male genitourinary complaints and Reports as per HPI Musculoskeletal: Musculoskeletal: Reports no additional musculoskeletal complaints and Reports as per HPI Integumentary/Breasts: Skin/Breast: Reports system reviewed and no additional complaints, except as docu Neurologic: Reports system reviewed and no additional complaints, except as documented and Reports as per HPI Psychiatric: Psychiatric: Reports no additional psychiatric complaints and Reports as per HPI Endocrine: Endocrine: Reports no additional endocrine complaints, Reports as per HPI and Denies palpitations Hematologic/Lymphatic: Hematologic/Lymphatic: Reports no additional hematologic/lymphatic complaints and Reports as per HPI Allergic/Immunologic: Allergic/Immunologic: Reports no additional allergic/immunologic complaints and Reports as per HPI [facility] Past Medical History Medical History Overdose Polysubstance abuse Family History Pertinent family history: Patient denies any pertinent cardiac issues in the family. Social History Social History Household Members: None Housing: Apartment Do you presently have visiting nurse or other home services: No Patient Tobacco Use Status: Current everyday Tobacco user Tobacco use type: Cigarette Smoked in Last 30 Days: Yes e-Cigarette/Vaping Use: Never Used Patient Interested in Nicotine Replacement: Yes Patient Given Instructions on How to Stop Smoking: Yes Date Education Initiated: 10/18/25 Second Hand Smoke Exposure: No Use of substances other than those prescribed or required for medical reasons: Yes Substance Use Type: Crack/Cocaine Substance Use Frequency: Occasionally Have you been hit, kicked, punched, or otherwise hurt by someone within the past year? If so, by whom?: No Do you feel safe in your current relationship?: Yes Is there a partner from a previous relationship who is making you feel unsafe now?: No Are you made to feel afraid or neglected: No Advance Directives: No Advance Directives Information Provided: No Recently lost weight without trying: No Meds Allergies Allergy/AdvReac Type Severity Reaction Status Date / Time Penicillins Allergy Facial Verified 10/18/25 10:08 Swelling Active Medications: Current Medications Acetaminophen (Acetaminophen 325 Mg Tablet) 650 mg PO Q6H PRN PRN Reason: Pain, Mild 1-3,fever,headache Calcium Carbonate (Calcium Carbonate 750 Mg Tab.Chew) 750 mg PO Q4H PRN PRN Reason: Heartburn Enoxaparin Sodium (Enoxaparin Sodium 40 Mg/0.4 Ml Syringe) 40 mg SUBCUT Q24H [facility] Last Admin: 10/18/25 13:12 Dose: 40 mg Folic Acid (Folic Acid 1 Mg Tablet) 1 mg PO DAILY [facility] Furosemide (Furosemide 40 Mg/4 Ml Vial) 40 mg IVPUSH BID@0900,1800 [facility]; Protocol Last Admin: 10/18/25 18:08 Dose: 40 mg Gabapentin (Gabapentin 300 Mg Capsule) 300 mg PO TID [facility] Last Admin: 10/18/25 21:11 Dose: 300 mg Hydroxyzine HCl (Hydroxyzine Hcl 50 Mg Tablet) 50 mg PO QID PRN PRN Reason: ANXIETY/SLEEP Last Admin: 10/19/25 05:45 Dose: 50 mg Magnesium Hydroxide (Milk Of Magnesia 30 Ml Oral.Susp) 30 ml PO DAILY PRN PRN Reason: Constipation Melatonin (Melatonin 3 Mg Tablet) 6 mg PO BEDTIME PRN PRN Reason: Insomnia Melatonin (Melatonin 3 Mg Tablet) 9 mg PO BEDTIME PRN PRN Reason: Insomnia Multivitamins/Vitamin C (Multivitamin Tablet) 1 tab PO BEDTIME [facility] Last Admin: 10/18/25 21:42 Dose: 1 tab Nicotine (Nicotine 14 Mg Patch.Td24) 14 mg TRANSDERMA DAILY [facility] Last Admin: 10/18/25 16:30 Dose: 14 mg Nicotine Polacrilex (Nicotine Polacrilex 2 Mg Gum) 2 mg BUCCAL Q1H PRN PRN Reason: Nicotine Cravings Last Admin: 10/18/25 15:51 Dose: 2 mg Ondansetron HCl (Ondansetron Hcl 4 Mg/2 Ml Vial) 4 mg IVPUSH Q8H PRN PRN Reason: Nausea and Vomiting Pharmacy Consult (Consult Rx Etoh Phenob Im/Po) 1 each MISCELLANE ONCE PRN; Protocol PRN Reason: Consult order Phenobarbital (Phenobarbital 15 Mg Tablet) 45 mg PO BID [facility] Stop: 10/20/25 21:01 Phenobarbital (Phenobarbital 30 Mg Tablet) 30 mg PO BID [facility] Stop: 10/22/25 21:01 Phenobarbital (Phenobarbital 30 Mg Tablet) 30 mg PO DAILY [facility] Stop: 10/24/25 09:01 Sodium Chloride (0.9 % Sodium Chloride Flush 3 Ml Syringe) 3 ml IVFLUSH QSHIFT [facility] Last Admin: 10/18/25 21:12 Dose: 3 ml Thiamine HCl (Thiamine Hcl 100 Mg Tablet) 100 mg PO DAILY [facility] Trazodone HCl (Trazodone Hcl 25 Mg Halftab) 25 mg PO BEDTIME PRN PRN Reason: Anxiety/Sleep Trazodone HCl (Trazodone Hcl 25 Mg Halftab) 75 mg PO BEDTIME PRN PRN Reason: Anxiety/Sleep Home Medications ?Medication ?Instructions ?Recorded ?Confirmed ?Last Taken ?Type gabapentin 300 mg capsule 300 mg PO TID 10/18/2510/1810/16/25 History haloperidol 10 mg tablet 10 mg PO BEDTIME 10/18/2510/16/25 History haloperidol 5 mg tablet 5 mg PO BEDTIME 10/18/2510/16/25 History hydroxyzine pamoate 50 mg capsule 50 mg PO QID PRN ANX IETY/SLEEP 10/18/25 10/18/25 10/16/25 History ibuprofen 200 mg tablet 400 mg PO Q8H PRN Pain 10/1810/18/25 Unknown History melatonin 10 mg capsule 10 mg PO BEDTIME PRN insomni a 10/18/25 10/18/25 Unknown History naltrexone 50 mg tablet 50 mg PO DAILY 10/18/25 12/07/1510/16/25 History trazodone 150 mg tablet 75 mg PO BEDTIME PRN Anxiety /Sleep 10/18/25 10/18/25 10/16/25 History trazodone 50 mg tablet 25 mg PO BEDTIME PRN Anxiety /Sleep 10/18/25 10/18/25 10/16/25 History Physical Exam 2 Vital Signs: Vital Signs: Last Vital Signs Temp 97.2 F 10/19/25 07:28 Pulse 100 10/19/25 07:28 Resp 20 10/19/25 07:28 BP 110/78 10/19/25 07:28 Pulse Ox 97 10/19/25 07:28 O2 Del Method Room Air 10/19/25 07:28 BMI result Body Mass Index 27.5 Const: General: comfortable and no acute distress O rientation/consciousness: patient oriented x3 HEENT: Other: Unremarkable Head: Yes normal to inspection Neck: Neck: Yes normal visual inspection Chest: Chest palpation & inspection: normal inspection of the chest Resp: Auscultation: clear to auscultation bilaterally Cardio: Palpation: normal PMI Heart sounds: S1 normal heart sound present, S2 normal heart sound present, Gallop heart sound present S3 gallop, no murmurs and no rubs GI: Palpation (GI): Soft to palpation Back/Spine/Pelvis: Other: unremarkable Skin: General skin exam: no rashes or lesions noted Neuro: General: patient oriented x3 Extrem: General: Yes normal to inspection Psych: Mental Status: mental status grossly normal Objective Labs and Meds 10/19/25 05:42 10/19/25 05:42 Lab results: Laboratory Results - last 24 hr 10/18/25 10/18/25 10/19/25 10:31 12:43 05:42 WBC 3.8 L 4.5 L RBC 5.62 5.04 Hgb 15.0 13.6 L Hct 47.6 41.9 L MCV 84.7 83.1 MCH 26.7 L 27.0 MCHC 31.5 32.5 RDW 16.6 H 16.4 H Plt Count 427 H 349 MPV 9.0 L 9.7 Immature Gran % (Auto) 0.5 H Neut % (Auto) 26.8 L Lymph % (Auto) 44.3 H [place] % (Auto) 27.1 H Eos % (Auto) 0.5 Baso % (Auto) 0.8 Lymph # (Auto) 1.7 [place] # (Auto) 1.0 Eos # (Auto) 0.0 Baso # (Auto) 0.0 Abs Immat Gran (auto) 0.02 Absolute Neuts (auto) 1.0 L Absolute Nucleated RBC 0.000 0.000 Nucleated RBC % (auto) 0.0 0.0 Smear Tech's Comments VERIFIED Sodium 143 137 Potassium 4.7 3.8 Chloride 112 H 104 Carbon Dioxide 24 25 Anion Gap 12 12 BUN 19 H 18 H Creatinine 1.14 1.31 Estim Creat Clear Calc 81.6 71.0 Estimated GFR > 60 > 60 Random Glucose 87 85 Calcium 9.1 7.9 L D Magnesium 1.9 Total Bilirubin 1.4 H 0.3 AST 52 H 48 H ALT 40 34 Alkaline Phosphatase 64 51 Troponin I High Sens 10.9 NT-Pro-B Natriuret Pep 7483.6 H 6839.0 H Total Protein 6.1 L 5.0 L Albumin 3.2 L 2.7 L Urine Opiates Screen Not Detected Ur Buprenorphine Scrn Not Detected Ur Oxycodone Screen Not Detected Urine Methadone Screen Not Detected Urine Fentanyl Screen Not Detected Ur Barbiturates Screen Not Detected Ur Phencyclidine Scrn Not Detected Ur Amphetamines Screen Not Detected U Benzodiazepines Scrn Not Detected Urine Cocaine Screen POSITIVE H U Marijuana (THC) Screen Not Detected Influenza Type A (PCR) NEGATIVE Influenza Type B (PCR) NEGATIVE RSV RNA Qual (PCR) NEGATIVE SARS-CoV-2 RNA (RT-PCR) NEGATIVE ECG Interpretation: EKG shows sinus tachycardia at 102/Min; left bundle-branch block pattern. Another EKG from April of this year also shows left bundle-branch block. Nothing prior to that. Imaging Radiologist's impression: Impressions Chest X-Ray 10/18/25 10:21 IMPRESSION: Enlarged cardiac silhouette, pulmonary venous redistribution and increased central interstitial markings. Findings are suggestive of mild CHF/pulmonary edema. Electronically signed by: Kim Conn MD 10/18/2025 10:27 AM [facility] Assessment and Plan (1) Acute combined systolic and diastolic congestive heart failure: Status: Acute (2) Acute pericardial effusion: Status: Acute (3) Polysubstance abuse: Status: Acute (4) Alcohol abuse: Status: Acute (5) Left bundle branch block: Status: Acute Plan In the echocardiogram, LVEF severely diminished at < 10%. It is [id number] circumferential pericardial effusion but no evidence of tamponade physiology. He was positive for cocaine. Previously also positive for cocaine, fentanyl, opiates. Overall, this could be cardiomyopathy related to some combination of substance abuse, alcohol as well as left bundle-branch block. Continue with IV diuretics for another day. We can start him on a small dose of metoprolol ER/Entresto hoping blood pressure remains stable. We will need to optimize other meds in due course. He will need a diagnostic catheterization as an outpatient. Likely biventricular ICD as well. However, he needs to stay off drugs and also cut back on alcohol. Will need counseling for the same. With regard to the pericardial effusion, no specific interventions for now. May get better with just diuretics and heart failure management. Overall, guarded prognosis. Procedures Date of Service Date of Service: 10/19/25
[2025-10-19] MEDS: Nicotine 14 MG PATCH.TD24 TRANSDERMA (10:33)
[2025-10-19] MEDS: PHENobarbital 15 MG TABLET 45 MG PO ×2 (10:33→20:44)
[2025-10-19] MEDS: Furosemide 40 MG/4 ML VIAL IVPUSH ×2 (10:34→17:49)
[2025-10-19] MEDS: 0.9 % Sodium Chloride Flush 3 ML SYRINGE IVFLUSH ×3 (10:34→20:48)
--- NOTE | 2025-10-19 11:16 | MHC.CM.PN ---
Patient is homeless and staying at a [facility]; it is his goal to return there at dc.CM has initiated and will follow for dc planning. Patient's PCP is from [facility] and Patient is functionally independent.
[2025-10-19 11:34] VITALS: BP 117/84; PULSE 109; RESP 20; TEMP 36.2; O2SAT 96
[2025-10-19] MEDS: Metoprolol Succinate ER 25 MG TAB.ER.24H PO (12:35)
[2025-10-19 15:26] VITALS: BP 104/65; PULSE 104; RESP 20; TEMP 36.4; O2SAT 98
--- NOTE | 2025-10-19 15:54 | HO.ADDICTCON ---
History of Present Illness Date of Service: 10/19/2025 Chief Complaint: CHF Reason for Consult: AUD Sources of Information: patient interviewed and chart reviewed HPI Narrative: Patient is a 40 year old male medically admitted with acute heart failure. Consult requested as patient reported daily alcohol use. Patient seen in room 460-2. He is awake, alert, watching TV. He is noticeably short of breath during the entirety of our discussion. He states that he has struggles with AUD for many years. Amount and frequently of drinking increased while he was unhoused, and he states that since then he has had difficulty stopping. He denies any withdrawal sx, and none noted when seen by t/w He is tearful during interview, stating that he felt ashamed about how his drinking has contributed to current clinical picture. He has previously taken Vivitrol, which he states was helpful with reducing drinking, but he felt that he gained weight with this medication so he stopped. He is active with local peer recovery center and attends meetings 3-4 days per week. In terms of drinking, he states that he usually starts drinking around 2pm, but sometimes earlier. He states that cocaine use, is occasional, and not daily. Denies any history of IVDU Medical Evaluation Reviewed: Yes Review of Systems Constitutional: Reports as per HPI and Reports malaise Cardiovascular: Reports dyspnea Respiratory: Reports dyspnea Diagnostics Vital Signs (24Hr): Vital Signs - 24 hr 10/18/25 18:08 10/18/25 18:09 10/18/25 19:08 Temperature Pulse Rate 102 H Respiratory Rate 20 Blood Pressure 109/82 109/82 Pulse Oximetry 97 95 Oxygen Delivery Method Room Air Room Air 10/18/25 21:23 10/18/25 23:17 10/19/25 07:28 Temperature 98.0 F 97.2 F 97.2 F Pulse Rate 114 H 96 100 Respiratory Rate 20 18 20 Blood Pressure 134/77 124/71 110/78 Pulse Oximetry 99 95 97 Oxygen Delivery Method Room Air Room Air Room Air 10/19/25 11:34 10/19/25 15:26 Temperature 97.1 F 97.5 F Pulse Rate 109 H 104 H Respiratory Rate 20 20 Blood Pressure 117/84 104/65 Pulse Oximetry 96 98 Oxygen Delivery Method Room Air Room Air BMI result Body Mass Index 27.5 Labs 10/19/25 05:42 10/19/25 05:42 Labs: Laboratory Results - last 48 hr 10/18/25 10/18/25 10/19/25 10:31 12:43 05:42 WBC 3.8 L 4.5 L RBC 5.62 5.04 Hgb 15.0 13.6 L Hct 47.6 41.9 L MCV 84.7 83.1 MCH 26.7 L 27.0 MCHC 31.5 32.5 RDW 16.6 H 16.4 H Plt Count 427 H 349 MPV 9.0 L 9.7 Immature Gran % (Auto) 0.5 H Neut % (Auto) 26.8 L Lymph % (Auto) 44.3 H [place] % (Auto) 27.1 H Eos % (Auto) 0.5 Baso % (Auto) 0.8 Lymph # (Auto) 1.7 [place] # (Auto) 1.0 Eos # (Auto) 0.0 Baso # (Auto) 0.0 Abs Immat Gran (auto) 0.02 Absolute Neuts (auto) 1.0 L Absolute Nucleated RBC 0.000 0.000 Nucleated RBC % (auto) 0.0 0.0 Smear Tech's Comments VERIFIED Sodium 143 137 Potassium 4.7 3.8 Chloride 112 H 104 Carbon Dioxide 24 25 Anion Gap 12 12 BUN 19 H 18 H Creatinine 1.14 1.31 Estim Creat Clear Calc 81.6 71.0 Estimated GFR > 60 > 60 Random Glucose 87 85 Calcium 9.1 7.9 L D Magnesium 1.9 Total Bilirubin 1.4 H 0.3 AST 52 H 48 H ALT 40 34 Alkaline Phosphatase 64 51 Troponin I High Sens 10.9 NT-Pro-B Natriuret Pep 7483.6 H 6839.0 H Total Protein 6.1 L 5.0 L Albumin 3.2 L 2.7 L Urine Opiates Screen Not Detected Ur Buprenorphine Scrn Not Detected Ur Oxycodone Screen Not Detected Urine Methadone Screen Not Detected Urine Fentanyl Screen Not Detected Ur Barbiturates Screen Not Detected Ur Phencyclidine Scrn Not Detected Ur Amphetamines Screen Not Detected U Benzodiazepines Scrn Not Detected Urine Cocaine Screen POSITIVE H U Marijuana (THC) Screen Not Detected Influenza Type A (PCR) NEGATIVE Influenza Type B (PCR) NEGATIVE RSV RNA Qual (PCR) NEGATIVE SARS-CoV-2 RNA (RT-PCR) NEGATIVE Imaging Radiology Impressions: ITS Impressions Chest X-Ray 10/18/25 10:21 IMPRESSION: Enlarged cardiac silhouette, pulmonary venous redistribution and increased central interstitial markings. Findings are suggestive of mild CHF/pulmonary edema. Electronically signed by: Kim Conn MD 10/18/2025 10:27 AM [facility] Mental Status Exam Mental Status Exam Level of Consciousness: Awake and Appropriate Patient Behavior: Appropriate and Talkative Affect Description: Calm and Sad Speech Pattern: Clear (SOB ) Thought Process: Intact Thought Content: positive for Intact Judgement: Good Medications Medications Current Medications Acetaminophen (Acetaminophen 325 Mg Tablet) 650 mg PO Q6H PRN PRN Reason: Pain, Mild 1-3,fever,headache Calcium Carbonate (Calcium Carbonate 750 Mg Tab.Chew) 750 mg PO Q4H PRN PRN Reason: Heartburn Empagliflozin (Empagliflozin 10 Mg Tablet) 10 mg PO DAILY [facility] Last Admin: 10/19/25 12:35 Dose: 10 mg Enoxaparin Sodium (Enoxaparin Sodium 40 Mg/0.4 Ml Syringe) 40 mg SUBCUT Q24H [facility] Last Admin: 10/19/25 14:19 Dose: 40 mg Folic Acid (Folic Acid 1 Mg Tablet) 1 mg PO DAILY [facility] Last Admin: 10/19/25 10:33 Dose: 1 mg Furosemide (Furosemide 40 Mg/4 Ml Vial) 40 mg IVPUSH BID@0900,1800 [facility]; Protocol Last Admin: 10/19/25 10:34 Dose: 40 mg Gabapentin (Gabapentin 300 Mg Capsule) 300 mg PO TID [facility] Last Admin: 10/19/25 10:33 Dose: 300 mg Hydroxyzine HCl (Hydroxyzine Hcl 50 Mg Tablet) 50 mg PO QID PRN PRN Reason: ANXIETY/SLEEP Last Admin: 10/19/25 05:45 Dose: 50 mg Magnesium Hydroxide (Milk Of Magnesia 30 Ml Oral.Susp) 30 ml PO DAILY PRN PRN Reason: Constipation Melatonin (Melatonin 3 Mg Tablet) 6 mg PO BEDTIME PRN PRN Reason: Insomnia Melatonin (Melatonin 3 Mg Tablet) 9 mg PO BEDTIME PRN PRN Reason: Insomnia Metoprolol Succinate (Metoprolol Succinate Er 25 Mg Tab.Er.24h) 25 mg PO DAILY [facility]; Protocol Last Admin: 10/19/25 12:35 Dose: 25 mg Multivitamins/Vitamin C (Multivitamin Tablet) 1 tab PO BEDTIME [facility] Last Admin: 10/18/25 21:42 Dose: 1 tab Nicotine (Nicotine 14 Mg Patch.Td24) 14 mg TRANSDERMA DAILY [facility] Last Admin: 10/19/25 10:33 Dose: 14 mg Nicotine Polacrilex (Nicotine Polacrilex 2 Mg Gum) 2 mg BUCCAL Q1H PRN PRN Reason: Nicotine Cravings Last Admin: 10/18/25 15:51 Dose: 2 mg Ondansetron HCl (Ondansetron Hcl 4 Mg/2 Ml Vial) 4 mg IVPUSH Q8H PRN PRN Reason: Nausea and Vomiting Pharmacy Consult (Consult Rx Etoh Phenob Im/Po) 1 each MISCELLANE ONCE PRN; Protocol PRN Reason: Consult order Phenobarbital (Phenobarbital 15 Mg Tablet) 45 mg PO BID [facility] Stop: 10/20/25 21:01 Last Admin: 10/19/25 10:33 Dose: 45 mg Phenobarbital (Phenobarbital 30 Mg Tablet) 30 mg PO BID [facility] Stop: 10/22/25 21:01 Phenobarbital (Phenobarbital 30 Mg Tablet) 30 mg PO DAILY [facility] Stop: 10/24/25 09:01 Sodium Chloride (0.9 % Sodium Chloride Flush 3 Ml Syringe) 3 ml IVFLUSH QSHIFT [facility] Last Admin: 10/19/25 10:34 Dose: 3 ml Thiamine HCl (Thiamine Hcl 100 Mg Tablet) 100 mg PO DAILY [facility] Last Admin: 10/19/25 10:33 Dose: 100 mg Trazodone HCl (Trazodone Hcl 25 Mg Halftab) 25 mg PO BEDTIME PRN PRN Reason: Anxiety/Sleep Trazodone HCl (Trazodone Hcl 25 Mg Halftab) 75 mg PO BEDTIME PRN PRN Reason: Anxiety/Sleep Allergies Allergies Allergy/AdvReac Type Severity Reaction Status Date / Time Penicillins Allergy Facial Verified 10/18/25 10:08 Swelling Assessment & Plan Assessment & Plan (1) Alcohol use disorder, severe, dependence: Status: Acute Code(s): F10.20 - Alcohol dependence, uncomplicated Assessment and Plan: phenobarbital protocol in place. no withdrawal sx noted or reported discussed how alcohol and cocaine use can impact cardiac function -discussed strategies to support patients goal of abstaining from use, including restarting POONAM. Patient will consider will follow up in AM to provide additional support and discuss POONAM and possibly IOP Total time managing care of this patient today __30__ minutes. PMFSH Past Medical History Medical History Overdose Polysubstance abuse Social History Social History Household Members: None Housing: Apartment Do you presently have visiting nurse or other home services: No Patient Tobacco Use Status: Current everyday Tobacco user Tobacco use type: Cigarette Smoked in Last 30 Days: Yes e-Cigarette/Vaping Use: Never Used Patient Interested in Nicotine Replacement: Yes Patient Given Instructions on How to Stop Smoking: Yes Date Education Initiated: 10/18/25 Second Hand Smoke Exposure: No Use of substances other than those prescribed or required for medical reasons: Yes Substance Use Type: Crack/Cocaine Substance Use Frequency: Occasionally Currently Displaying Signs/Symptoms of Drug Intoxication Withdrawal: No Have you been hit, kicked, punched, or otherwise hurt by someone within the past year? If so, by whom?: No Do you feel safe in your current relationship?: Yes Is there a partner from a previous relationship who is making you feel unsafe now?: No Are you made to feel afraid or neglected: No Advance Directives: No Advance Directives Information Provided: No Recently lost weight without trying: No service: No
--- NOTE | 2025-10-19 16:13 | MHC.RECOVRN ---
Todd is a 40-y/o bilingual male with AUD who is admitted to [facility] for evaluation and treatment of substance-use induced cardiomyopathy and CHF. Pt presented to the ED following SOB and CP x 3 days. Pt evaluated in 460-2 by this recovery unit operator after receiving an addiction consult for evaluation of AUD, and recovery support. Pt reports daily alcohol use 4-5 24oz beers and weekly cocaine use $20-40 worth. Denies IVDU. Denies opiate use and hx of overdose. Discussed AUD, POONAM, recovery supports, history of treatment. Pt states he currently resides at [facility] and attends daily or every other day group meetings at [employer] [place]. Pt states he is well-connected to supports at [facility] and that he has a counselor through there. Pt reports I've drank from a young age. It's an ongoing fight. Discussed moderation vs complete abstinence. Pt finds both are equally as hard. Risk factors and barriers include being undomiciled and family history of AUD. Pt declined POONAM initation and declined outpatient JELENA tx appointment for his AUD. See recovery eval for more info.
[2025-10-19 20:00] VITALS: BP 109/79; PULSE 108; RESP 20; TEMP 36.3; O2SAT 94
[2025-10-19] MEDS: traZODone HCL 25 MG HALFTAB 75 MG PO (21:40)
[2025-10-19 23:53] VITALS: BP 101/57; PULSE 95; RESP 16; TEMP 36.3; O2SAT 96
[2025-10-20 03:25] VITALS: BP 100/60; PULSE 93; RESP 16; TEMP 36.9; O2SAT 95
[2025-10-20 07:11] VITALS: BP 136/74; PULSE 84; RESP 16; TEMP 36.6; O2SAT 97
[2025-10-20 08:22] VITALS: BP 136/74; PULSE 84
[2025-10-20] MEDS: PHENobarbital 15 MG TABLET 45 MG PO (08:22)
[2025-10-20] MEDS: Furosemide 40 MG/4 ML VIAL IVPUSH (08:22)
[2025-10-20] MEDS: Nicotine 14 MG PATCH.TD24 TRANSDERMA (08:22)
[2025-10-20] MEDS: Metoprolol Succinate ER 25 MG TAB.ER.24H PO (08:22)
[2025-10-20] MEDS: 0.9 % Sodium Chloride Flush 3 ML SYRINGE IVFLUSH (08:28)
--- NOTE | 2025-10-20 10:16 | PM.PNCARD ---
Subjective Subjective Date of Service: 10/20/25 Interval history: Patient states he is feeling fine. He is not having any active cardiac symptoms. Denies any shortness of breath. Review of Systems Review of Systems Yes all other systems are reviewed and are negative Constitutional: Reports as per HPI and Reports no additional constitutional complaints Eyes: Reports as per HPI and Denies no additional eye complaints Denies system reviewed and no additional complaints, except as documented and Reports as per HPI Cardiovascular: Reports as per HPI, Reports no additional cardiovascular complaints, Denies acrocyanosis, Denies cool extremities, Denies chest pain, Denies leg edema, Denies lightheadedness, Denies palpitations and Denies dyspnea Respiratory: Reports as per HPI, Denies no additional respiratory complaints and Denies dyspnea Gastrointestinal: Reports as per HPI and Denies no additional gastrointestinal complaints Genitourinary: Reports no additional male genitourinary complaints and Reports as per HPI Musculoskeletal: Reports no additional musculoskeletal complaints and Reports as per HPI Skin/Breast: Reports system reviewed and no additional complaints, except as docu Reports system reviewed and no additional complaints, except as documented and Reports as per HPI Psychiatric: Reports no additional psychiatric complaints and Reports as per HPI Endocrine: Reports no additional endocrine complaints, Reports as per HPI and Denies palpitations Hematologic/Lymphatic: Reports no additional hematologic/lymphatic complaints and Reports as per HPI Allergic/Immunologic: Reports no additional allergic/immunologic complaints and Reports as per HPI Physical Exam Vital Signs: Last Vital Signs Temp 97.8 F 10/20/25 07:11 Pulse 84 10/20/25 08:22 Resp 16 10/20/25 07:11 BP 136/74 10/20/25 08:22 Pulse Ox 97 10/20/25 07:11 O2 Del Method Room Air 10/20/25 07:11 BMI result Body Mass Index 27.5 Const General: comfortable and no acute distress Orientation/consciousness: patient oriented x3 HEENT Other: Unremarkable Head: Yes normal to inspection Neck Neck: Yes normal visual inspection Chest Chest palpation & inspection: normal inspection of the chest Resp Auscultation: clear to auscultation bilaterally Cardio Palpation: normal PMI Heart sounds: S1 normal heart sound present, S2 normal heart sound present, Gallop heart sound present S3 gallop, no murmurs and no rubs GI Palpation (GI): Soft to palpation Back/Spine/Pelvis Other: unremarkable Skin General skin exam: no rashes or lesions noted Neuro General: patient oriented x3 Extrem General: Yes normal to inspection Psych Mental Status: mental status grossly normal Objective Labs and Meds 10/19/25 05:42 10/19/25 05:42 Progress Note: A&P Assessment and plan (1) Acute combined systolic and diastolic congestive heart failure: Status: Acute (2) Acute pericardial effusion: Status: Acute (3) Polysubstance abuse: Status: Acute (4) Alcohol abuse: Status: Acute (5) Left bundle branch block: Status: Acute Plan In the echocardiogram, LVEF severely diminished at < 10%. It is [id number] circumferential pericardial effusion but no evidence of tamponade physiology. He was positive for cocaine. Previously also positive for cocaine, fentanyl, opiates. Overall, this could be cardiomyopathy related to some combination of substance abuse, alcohol as well as left bundle-branch block. Currently on oral diuretics. He has been started on metoprolol. Start Entresto. Hoping he will follow up in clinic, he will need to be on additional medications. Eventually, consider diagnostic catheterization as well as EP evaluation for biventricular ICD. I discussed about his cardiac condition today but not clear how much she understands. Discussed about effect of illicit drugs, alcohol and advised him to refrain completely. With regard to the pericardial effusion, no specific interventions. Follow up will be arranged in the clinic. Time Spent With Patient Time: Total time managing care of this patient today ____ minutes. Progress Note: Quality Stroke Does the patient have a stroke diagnosis?: No Procedures Date of Service Date of Service: 10/20/25
--- NOTE | 2025-10-20 11:06 | MHC.RECOVRN ---
met with pt for f/u and to offer support. Pt declines referral for IOP/PHP or initiation of POONAM at this time. Pt was provided educational and harm reduction materials for review and given contact number for ACS team for questions or concerns
[2025-10-20 11:41] VITALS: BP 107/65; PULSE 94; RESP 16; TEMP 36.7; O2SAT 98
--- NOTE | 2025-10-20 12:40 | P.DS_ITS ---
DS: Providers Provider Date of admission: 10/18/25 12:08 Date of discharge: 10/20/25 Primary care physician: None Physician Consults: 10/18/25 12:08 Consult to Cardiology Routine Consulting Provider: [facility] Reason for consultation: CHF 10/18/25 14:08 Addiction Medicine Provider Routine Consulting Provider: Addiction Covering Reason for consultation: cocaine use and ETOH Has provider been notified: Yes DS: Diagnosis Discharge Diagnosis (1) Acute combined systolic and diastolic congestive heart failure: Status: Acute (2) Acute pericardial effusion: Status: Acute (3) Polysubstance abuse: Status: Acute (4) Alcohol abuse: Status: Acute (5) Left bundle branch block: Status: Acute DS: Summary Hospital Course Hospital Course: Admission note HPI 40 year old urssell Brooks presents with approximately three days of shortness of breath (SOB) and intermittent chest pain. SOB is worse with exertion and occurs both when lying flat and sitting upright. He also reports a cough and a generalized ?weird? body sensation with the ability to press into the skin of his legs and back, suggestive to him of swelling. He denies fever. He previously went to a community ED for similar symptoms but left prior to evaluation due to long wait times; laboratory work and an EKG were completed there (details below). He has no history of reactive airway disease, myocardial infarction, or hypertension. He missed a primary care appointment earlier this month while moving but is scheduled to see his PCP next month. Hospital course The patient was treated for severe CMP w acute HFrEF with IV Lasix and strick I\O. Echocardiogram shows severely reduced LVEF <10% with a [id number] circumferential pericardial effusion without tamponade physiology. Patient tested positive for cocaine; prior screens also positive for cocaine, fentanyl, and opiates. Likely etiology of cardiomyopathy is multifactorial?substance use, alcohol, and underlying LBBB. Will be discharged on oral diuretics and started on metoprolol, Initiated Entresto at time of discharge. Advised strict abstinence from illicit drugs and alcohol. No intervention required for pericardial effusion Future considerations: * Outpatient follow-up for optimization of guideline-directed medical therapy * Possible diagnostic cardiac catheterization * EP evaluation for biventricular ICD placement Discharge plan Total Abstinence from Alcohol and Cocaine Follow with addiction team as outpatient Follow with cardiology as outpatient: to repeat Blood work Start new medications : Furosemide , Metoprolol and Entresto Monitor blood pressure at home; Hold Entresto for low blood pressure readings Nicotine patches prescribed; avoid smoking Time Attestation Discharge Coordination Time (in mins): 45 Quality: Safe Use of Opioids Does Pt have an Active Cancer Diagnosis on the Problem List?: No Quality: Stroke Does the patient have a stroke diagnosis?: No Physical Exam Exam: Exam: Constitutional : Awake, interactive, not in distress Neck : Normal inspection, Supple Cardiovascular : RRR, no JVP, trace bilateral lower extremity edema Respiratory : good bilateral air entry, no crackles, wheezes or rhonchi Gastrointestinal: soft, lax, Normal bowel sounds, Non tender Skin : Warm, Dry Neurological : Alert & oriented x3, No focal deficit Vital Signs: Vital Signs: Last Vital Signs Temp 98.1 F 10/20/25 11:41 Pulse 94 10/20/25 11:41 Resp 16 10/20/25 11:41 BP 107/65 10/20/25 11:41 Pulse Ox 98 10/20/25 11:41 O2 Del Method Room Air 10/20/25 11:41 BMI result Body Mass Index 27.5 DS: Data Imaging Chest x-ray: Radiologist's impression: ITS Impressions Chest X-Ray 10/18/25 10:21 IMPRESSION: Enlarged cardiac silhouette, pulmonary venous redistribution and increased central interstitial markings. Findings are suggestive of mild CHF/pulmonary edema. Electronically signed by: Kim Conn MD 10/18/2025 10:27 AM [facility] Discharge Plan Discharge Anticipated Discharge Date/Time: 10/20/25 12:29 Patient Disposition: Home Health Service Discharge Diagnosis: HEart failure acute exacerbation Alcohol and Cocaine abuse Referrals: Physician,None [Primary Care Provider, Medical] - 1 Week Discharge Medications: New nicotine 14 mg/24 hr Patch 24 Hour 14 mg transdermal DAILY Qty: 28 3RF metoprolol succinate 25 mg Tablet Extended Release 24 Hr 25 mg PO DAILY 90 Days Qty: 90 0RF Protocol: Hold for SBP/HR < HOLD for SBP < : 90 HOLD for HR < : 60 thiamine mononitrate (vit B1) 100 mg Tablet 100 mg PO DAILY Qty: 90 0RF Jardiance 10 mg Tablet 10 mg PO DAILY 90 Days Qty: 90 0RF furosemide [Lasix] 40 mg tablet 40 mg PO QAM Qty: 90 0RF sacubitril-valsartan [Entresto] 24-26 mg tablet 1 tab PO BID Qty: 180 0RF Continued haloperidol 5 mg tablet 5 mg PO BEDTIME Rx Instructions: take along with 10mg tablet for a total dose of 15mg at bedtime trazodone 50 mg tablet 25 mg PO BEDTIME PRN (Reason: Anxiety/Sleep) Rx Instructions: Patient takes 1/2 tab for anxiety and sleep and will take other half of tab if needed. naltrexone 50 mg tablet 50 mg PO DAILY hydroxyzine pamoate 50 mg capsule 50 mg PO QID PRN (Reason: ANXIETY/SLEEP) trazodone 150 mg tablet 75 mg PO BEDTIME PRN (Reason: Anxiety/Sleep) Rx Instructions: Patient takes 1/2 tab for anxiety and sleep and will take other half of tab if needed. haloperidol 10 mg tablet 10 mg PO BEDTIME Rx Instructions: take with 5 mg tab for total nightly dose=15mg gabapentin 300 mg capsule 300 mg PO TID melatonin 10 mg capsule 10 mg PO BEDTIME PRN (Reason: insomnia) ibuprofen 200 mg Tablet 400 mg PO Q8H PRN (Reason: Pain) Discharge Orders: Discharge Order (Routine); Ordered 10/20/25 Ordered By: Maurice Edmondson Diet: Low salt diet Activity on Discharge: As tolerated Stand Alone Forms: Patient Portal Discharge page Print Language: Iranian Care Plan Goals: Improve breathing Decrease readmission change Health Concerns: Heart failure exacerbation Alcohol and Cocaine abuse Plan of Treatment: Total Abstinence from Alcohol and Cocaine Follow with addiction team as outpatient Follow with cardiology as outpatient: to repeat Blood work Start new medications : Furosemide , Metoprolol and Entresto Monitor blood pressure at home; Hold Entresto for low blood pressure readings Nicotine patches prescribed; avoid smoking Assessment: as above
--- NOTE | 2025-10-20 12:40 | W.MHC.F2F ---
Service Date Service Date: 10/20/25 Encounter Date of encounter: 10/20/25 Reasons for Services Signs and symptoms assessed: Cardiomyopathy Heart failure exacerbation Reason for senior living: medication management and teach disease management Homebound: Leaving the home is medically contraindicated at this time without the asist of a device and/or another person due th the listed conditions above and below. Reason homebound: unable to drive Certification: Based on the above findings, I certify that this patient is confined to the home and needs intermittent senior living care, physical therapy and/or speech therapy, or continues to need occupational therapy. The patient is under my care, and I have initiated the establishment of the plan of care. The patient will be followed by a physician who will periodically review the plan of care. Time Spent With Patient Time: Total time managing care of this patient today ____ minutes.
--- NOTE | 2025-10-20 12:55 | MHC.CM.PN ---
Patient has been medically cleared for dc today. CM met with Patient at bedside; he plans to return to his [facility]. Patient declined assistance with transportation; he intends to take the bus (MD & RN are aware). Patient declined any additional services; he stated that he receives health care from [facility].
== END 2025-10-20 13:44 | disposition home or self-care (01) | DRG 194 ==
LOC: HO.ED 11:59 → HO.EDOVER 12:12 → HO.IMC 19:19
PROVIDERS: Physician Assistant Medical; Admitting Provider Nurse Practitioner Acute Care; Emergency Provider Emergency Medicine; Visit Provider Student in an Organized Health Care Education/Training Program
DX: I11.0 Hypertensive heart disease with heart failure (principal); I42.6 Alcoholic cardiomyopathy; F10.20 Alcohol dependence, uncomplicated; F17.210 Nicotine dependence, cigarettes, uncomplicated; I50.41 Acute combined systolic (congestive) and diastolic (congestive) heart failure; Z71.6 Tobacco abuse counseling; F19.10 Other psychoactive substance abuse, uncomplicated; Z20.822 Contact with and (suspected) exposure to COVID-19; Z79.899 Other long term (current) drug therapy
CPT/HCPCS: 36415; 71046; 80053; 80307; 83735; 83880; 84484; 85025; 85027; 87637; 93005; 93306; 99285; J1650; J1938; J2560; S9485

== ENCOUNTER → 2025-10-18 10:14 | Outpatient (BNV) | payer MEDICAID, SELFPAY | PROVIDERS: Emergency Provider Emergency Medicine; Visit Provider Radiology Diagnostic Radiology | DX: R06.02 Shortness of breath (principal) | CPT/HCPCS: 71046 ==

== ENCOUNTER → 2025-10-18 12:00 | Outpatient (BNV) | payer MEDICAID, SELFPAY | PROVIDERS: Admitting Provider Nurse Practitioner Acute Care; Emergency Provider Emergency Medicine; Visit Provider Internal Medicine | DX: I44.7 Left bundle-branch block, unspecified (principal); R00.0 Tachycardia, unspecified | CPT/HCPCS: 93010; 93306 ==

== ENCOUNTER → 2025-10-18 12:08 | Outpatient (BNV) | payer MEDICAID, SELFPAY | PROVIDERS: Admitting Provider Nurse Practitioner Acute Care; Emergency Provider Emergency Medicine; Visit Provider Nurse Practitioner Acute Care | DX: F19.10 Other psychoactive substance abuse, uncomplicated (principal); F10.10 Alcohol abuse, uncomplicated | CPT/HCPCS: 99232 ==

== ENCOUNTER → 2025-10-18 12:08 | Outpatient (BNV) | payer OTHER, SELFPAY | PROVIDERS: Admitting Provider Nurse Practitioner Acute Care; Emergency Provider Emergency Medicine; Visit Provider Nurse Practitioner Psychiatric/Mental Health | DX: F10.20 Alcohol dependence, uncomplicated (principal) | CPT/HCPCS: 99232 ==

== ENCOUNTER → 2025-10-18 12:08 | Outpatient (BNV) | payer MEDICAID, SELFPAY | PROVIDERS: Admitting Provider Nurse Practitioner Acute Care; Emergency Provider Emergency Medicine; Visit Provider Internal Medicine | DX: I50.41 Acute combined systolic (congestive) and diastolic (congestive) heart failure (principal); I30.9 Acute pericarditis, unspecified; F19.10 Other psychoactive substance abuse, uncomplicated; F10.10 Alcohol abuse, uncomplicated; I44.7 Left bundle-branch block, unspecified | CPT/HCPCS: 99223; 99233 ==